=== PATIENT | male | born 1965 | race Caucasian/White ===

== ENCOUNTER 2019-10-11 14:01 | Inpatient (IN) ==
--- NOTE | 2019-10-11 14:57 | XRay Report ---
XR chest 1V portable CLINICAL HISTORY: Sepsis COMPARISON STUDY: No previous studies for comparison. FINDINGS: Lung volumes are diminished. Left basilar opacity favors atelectasis. There is no evidence for pulmonary edema. There is slight prominence of the contour of the ascending aorta. Cardiac size i s normal. No pneumothorax or pleural effusion is noted. IMPRESSION: 1. No acute findings. 2. Low lung volumes with suspected left basilar atelectasis. Electronically signed by: Ignacio Foster M.D. 10/11/2019 2:55 PM
[2019-10-11 15:52] LABS: Basophils # (auto) 0.04 K/uL (0-0.2); Basophils % (auto) 0.6 %; Eosinophils # (auto) 0.11 K/uL (0-0.5); Eosinophils % (auto) 1.5 %; Hematocrit (blood only) 29.8 % (42-52); Hemoglobin 10.9 g/dL (14.0-18.0); Immature Granulocytes # (auto) 0.02 K/uL (0.00-0.02); Immature Granulocytes % (auto) 0.3 %; Lymphocytes # (auto) 0.89 K/uL (1.2-3.4); Lymphocytes % (auto) 12.3 %; Mean Corpuscular Hemoglobin 36.6 pg (25-34); Mean Corpuscular Hgb Conc 36.6 g/dL (32-36); Mean Platelet Volume 8.5 fL (7.4-10.4); Monocytes # (auto) 1.24 K/uL (0.11-0.59); Monocytes % (auto) 17.2 %; Neutrophils # (auto) 4.93 K/uL (1.4-6.5); Neutrophils % (auto) 68.1 %; Platelet Count 175 K/uL (130-400); RDW Coefficient of Variation 13.7 % (11.5-14.5); RDW Standard Deviation 49.7 fL (36.4-46.3); Red Blood Count 2.98 M/uL (4.7-6.1); White Blood Count 7.23 K/uL (4.8-10.8)
[2019-10-11 16:03] LABS: iSTAT Creatinine 1.1 mg/dl (0.6-1.3); iSTAT Hemoglobin 11.2 g/dl (14.0-18.0); iSTAT Ionized Calcium 1.14 mmol/l (1.12-1.32); iSTAT Potassium 3.8 mEq/L (3.3-5.0)
[2019-10-11 16:06] LABS: INR 1.5 (0.9-1.1); Partial Thromboplastin Ratio 1.2; Partial Thromboplastin Time 33.6 Seconds (21.0-31.0); Prothrombin Time 14.8 Seconds (9.0-12.0)
[2019-10-11 16:14] LABS: Albumin Level 3.3 gm/dl (3.4-5.0); Calcium 9.4 mg/dl (8.5-10.1); Creatinine Clr Calc Pharmacy 80.9 ml/min; Est GFR (African American) 81.7; Est GFR (Non-African American) 70.5; Potassium 3.8 mmol/L (3.5-5.1)
[2019-10-11] MEDS ORDERED: LACTULOSE SYRUP 30 GM/45 ML UDP PO STA (16:18)
[2019-10-11 16:22] LABS: Albumin Globulin Ratio 0.6 (0.9-2); Bilirubin,Total 5.6 mg/dl (0.2-1); Globulin 5.6 gm/dl (2.5-4.0); Total Protein 8.9 gm/dl (6.4-8.2)
--- NOTE | 2019-10-11 17:00 | CT Scan Report ---
CT OF THE HEAD WITHOUT CONTRAST CLINICAL HISTORY: Altered mental status. Evaluate for bleed. COMPARISON STUDY: No previous studies for comparison. TECHNIQUE: Helical axial images of the head were obtained without IV contrast. Automated exposure con trol was utilized for the study. A dose lowering technique was utilized adhering to the principles o f ALARA. FINDINGS: No acute intracranial hemorrhage, midline shift or mass effect is present. The basilar cist erns are patent. No extra-axial collections are present. There are no findings to suggest acute dural sinus thrombosis or acute territorial infarct. No significant calvarial abnormalities are present. V isualized portions of the sinuses and mastoid air cells are clear. A 5 mm cyst at the foramen of Monr o is noted. There is no hydrocephalus. IMPRESSION: 1. No acute intracranial findings. 2. 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 No hydrocephalus. Electronically signed by: Ignacio Foster M.D. 10/11/2019 4:59 PMr
[2019-10-11] MEDS ORDERED: LACTULOSE 200 GM, WATER, STERILE IRRIG 700 ML, BARCODE IDENTIFIER 1 EA PR STA (17:01)
--- NOTE | 2019-10-11 17:16 | CT Scan Report ---
CT OF THE ABDOMEN AND PELVIS WITHOUT CONTRAST CLINICAL HISTORY: Right-sided abdominal pain. Evaluate for cholecystitis. COMPARISON STUDY: Abdominal ultrasound July 23, 2019. TECHNIQUE: Axial images of the abdomen and pelvis were obtained without IV contrast. Images were revi ewed in the axial, sagittal, and coronal planes. Automated exposure control was utilized for the king dy. A dose lowering technique was utilized adhering to the principles of ALARA. FINDINGS: Imaged portions of the lower chest are unremarkable. Bilateral gynecomastia is noted. Evalu ation of the abdomen and pelvis is suboptimal on this unenhanced exam. No pneumatosis, free air or po rtal venous gas is present. The liver is cirrhotic. There are gallstones within the gallbladder. The gallbladder is not distended. Large right abdominal collaterals are noted. The spleen is mildly enlar ged. Moderate abdominal and pelvic ascites is noted. Proximal to mid small bowel is moderately dilate d. Distal small bowel is decompressed. These findings favor a small bowel obstruction however evaluat ion for transition point is difficult on this unenhanced exam. An ascites containing umbilical hernia is noted. Small bowel loops may protrude into this hernia sac. Its unclear if this represents the tr ansition point. No inguinal hernias are present. Bladder is mildly distended. There are no suspicious osseous lesions. No hepatic lesions are identified although sensitivity is diminished on this unenha nced examination. The adrenal glands, kidneys and pancreas are normal. No peripancreatic infiltration . IMPRESSION: 1. Cirrhosis with manifestations of portal hypertension including large right abdominal collaterals, moderate ascites and mild splenomegaly. 2. Moderate dilatation of the proximal to mid small bowel with decompressed distal small bowel. Evalu ation for transition point difficult on this unenhanced exam. Ascites containing umbilical hernia whi ch could contain a small bowel loop. It's unclear if this represents the transition point. A CT of th e abdomen and pelvis with IV contrast is recommended if possible. An ileus could appear similar altho ugh small bowel obstruction is favored. 3. Cholelithiasis. Electronically signed by: Ignacio Foster M.D. 10/11/2019 5:14 PM
[2019-10-11] MEDS ORDERED: IOVERSOL 100ml IV PRN (18:27)
--- NOTE | 2019-10-11 18:52 | CT Scan Report ---
CT OF THE ABDOMEN AND PELVIS WITH CONTRAST CLINICAL HISTORY: Evaluate for SBO/incarcerated hernia. COMPARISON STUDY: CT of the abdomen and pelvis October 11, 2019 at 4:20 PM. TECHNIQUE: Following IV administration of 93 mL of Optiray-320, axial images of the abdomen and pelvi s were obtained from the lung bases to the proximal femurs. Images were reviewed in the axial, sagitt al, and coronal planes. IV contrast was administered without complication. Automated exposure contro l was utilized for the study. A dose lowering technique was utilized adhering to the principles of A ALIA. CT DOSE: 776.60 mGy.cm FINDINGS: Lung bases are unremarkable. Bilateral gynecomastia is noted. The liver is cirrhotic. Note is made of an indeterminate 6 mm segment 2 hepatic lesion. The main and left portal veins are patent. The right portal vein is suboptimally assessed on this exam due to artifact but is likely patent. Mi ld splenomegaly is noted. Moderate ascites is noted. Large right abdominal collaterals are noted. The adrenal glands, kidneys and pancreas are normal. There is no pneumatosis, free air or portal venous gas. The mid small bowel is moderately dilated and fluid-filled. Distal small bowel is decompressed. Transition point is likely at the umbilical hernia which also contains ascites as well as a knuckle o f small bowel. This is shown on axial image [id number]. Evaluation is difficult given adjacent ascites. Bladder is mildly distended. Appendix is normal. There are no suspicious osseous lesions. Gallstones are noted. IMPRESSION: 1. Small bowel obstruction due to an umbilical hernia which contains a knuckle of small bowel and asc ites. 2. Cirrhosis with manifestations of portal hypertension including moderate ascites, large right abdom inal collaterals and mild splenomegaly. Indeterminate 6 mm segment 2 hepatic lesion. 3. Cholelithiasis. Electronically signed by: Ignacio Foster M.D. 10/11/2019 6:50 PM
[2019-10-11] MEDS ORDERED: PHYTONADIONE 10 MG in SODIUM CHLORIDE 0.9% 50 ML IV ONE (19:09)
--- NOTE | 2019-10-11 19:11 | Surgery Consultation ---
Date of Consultation October 11, 2019 Assessment & Plan (1) Small bowel obstruction: Patient without evidence of bowel ischemia. He is clearly dehydrated. Has not been having nausea or vomiting at home. With his liver failure, cirrhosis, coagulopathy, ascites, he is a very complex patient with a very high surgical morbidity/mortality. I recommend he be transferred to a tertiary center where he can have all of his issues addressed by specialists. If for some reason he cannot be transferred I recommend correcting his coagulopathy with vitamin K. I also recommend nasogastric tube to low intermittent suction. IV fluids. Correcting his hepatic encephalopathy/ammonia level. Surgical intervention only as a last resort. I will follow along should he have to be admitted here. (2) Dehydration: History of Present Illness History of Present Illness 54-year-old male with a history of alcoholic cirrhosis presents with his due to altered mental status. He has not really eaten anything since Sunday. He generally has chronic underlying right sided abdominal pain per his . He was seen by the [facility] in [place] regarding his cirrhosis/liver transplant work-up. CT scan shows ascites as well as a small bowel obstruction suspected to be at an umbilical hernia. The patient himself has not been vomiting at all at home. The patient's tell me he has had 3 or 4 episodes similar to this since June with regards to him not wanting to eat. This is the first time he has had altered mental status to this severity. Allergies Allergy/AdvReac Type Severity Reaction Status Date / Time No Known Allergies Allergy Verified 10/11/19 16:36 Home Medications Home Medications Medication Instructions Recorded Confirmed Type ergocalciferol (vitamin D2) 50,000 unit PO TH 10/11/19 10/11/19 History furosemide 20 mg PO BID 10/11/19 10/11/19 History potassium chloride 20 meq PO DAILY 10/11/19 10/11/19 History spironolactone 100 mg PO DAILY 10/11/19 10/11/19 History Patient History Medical History Enlarged liver Gallstones Liver cirrhosis, alcoholic Splenomegaly Thickening of wall of gallbladder Umbilical hernia Surgical History No pertinent past surgical history Family History Mother Cancer Melanoma Father Hypertension Heart disease Social History Preferred Language: Micronesian Visual Impairment: No Limitations Hearing Ability: Normal marital status: Current Living Situation: Spouse current occupational status: employed 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 Moves spontaneously. Does not follow commands. HEENT: Dry mucous membranes. Heart: Sinus tachy Abdomen: Soft. Nondistended. Positive umbilical hernia with fluid within it.( unchanged per ). Nontender. ext:no edema Results & Data Vital Signs (Past 12 Hours) Vital Signs Temp Pulse Resp BP Pulse Ox 10/11/19 17:30 118 H 18 156/86 H 10/11/19 17:15 122 H 21 149/88 H 10/11/19 17:00 120 H 20 148/82 H 10/11/19 16:45 114 H 15 132/77 10/11/19 16:15 117 H 17 139/89 97 10/11/19 15:58 36.5 C 128 H 20 100 10/11/19 15:56 117 H 17 136/79 97 10/11/19 14:05 36.7 C 128 H 20 156/97 H 100 PG Care Time/CCT Total # of Minutes Spent Total Time Spent with Patient: Total time spent is greater than 50% in coordination of care (as documented) at patient's floor/unit and/or counseling patient:
[2019-10-11] MEDS ORDERED: SODIUM CHLORIDE 0.9% 1000ML 1,000 ML IV SCH (19:30)
[2019-10-11] MEDS ORDERED: LORazepam 0.5 MG/1 ML VIAL IV STA (20:58)
[2019-10-11] MEDS ORDERED: LORazepam 2 MG/4 ML VIAL ONE (21:00)
--- NOTE | 2019-10-11 23:10 | Emergency Department Note ---
Entered by Brie Ojeda acting as a scribe for Arley Treadwell MD History of Present Illness General Chief complaint: GI Assessment Stated complaint: DEHYDRATED - HASNT ATE SINCE SUN NIGHT Time Seen by Provider: 10/11/19 14:31 Source: family and old records reviewed Limitations: altered mental status History of Present Illness Onset (ago): day(s) 3 Location: abdomen (right sided) Pain Consistency: + constant Maximum Pain Intensity: 5 Exacerbated By: + eating Associated symptoms: + denies other symptoms (vomiting, diarrhea, hematochezia ), + confusion (began today, non-verbal ) and + other (nausea, non-verbal (began today), jaundice appearance, frequent nosebleeds) The patient is a 54 year old male with a history of alcohol abuse (last drink was June 2019), alcohol induced cirrhosis of the liver who presents to the Emergency Room with complaints of abdominal pain. The patient began to experience right sided abdominal pain after eating lemon chicken soup at a restaurant 3 days ago. Family reports that 30 minutes after PO the patient began to experience nausea but did not vomit and did not have diarrhea. The patient's family states that this is his third recent episode of abdominal pain after food intake. The family reports that they did not experience these symptoms after eating at this restaurant with him. Since this time, the patient has not had any PO intake besides fluids. He has had only 2 small bowel movements since then and family states that his skin appears more jaundiced. Additionally, family reports that the patient was conversational up until today and that he became confused. They are unsure if he fell or hit his head recently. They also state that he has been experiencing recent nosebleeds but they think it may be due to the dryness in their home since they have a fireplace going. Family denies that the patient had hematochezia and are unsure of melena. History is limited as the patient is nonverbal. HPI is limited due to the patient's altered mental status. Home Medications Home Medications Medication Instructions Recorded Confirmed Type ergocalciferol (vitamin D2) 50,000 unit PO TH 10/11/19 10/11/19 History furosemide 20 mg PO BID 10/11/19 10/11/19 History potassium chloride 20 meq PO DAILY 10/11/19 10/11/19 History spironolactone 100 mg PO DAILY 10/11/19 10/11/19 History Allergies Allergy/AdvReac Type Severity Reaction Status Date / Time No Known Allergies Allergy Verified 10/11/19 16:36 Past Med/Surg History Medical History Enlarged liver Gallstones Liver cirrhosis, alcoholic Splenomegaly Thickening of wall of gallbladder Umbilical hernia Surgical History No pertinent past surgical history Family History Mother Cancer Melanoma Father Hypertension Heart disease Social History Preferred Language: Armenian Visual Impairment: No Limitations Hearing Ability: Normal marital status: Current Living Situation: Spouse current occupational status: employed 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 ROS is limited due to the patient's altered mental status. Physical Exam Vital Signs Vital Signs - 24 hr 10/11/19 14:05 10/11/19 15:56 10/11/19 15:58 Temperature 36.7 C 36.5 C Temperature Source Oral Rectal Pulse Rate 128 H 117 H 128 H Pulse Rate from SpO2 Sensor 116 H Pulse Rhythm Regular Respiratory Rate 20 17 20 Respiratory Effort / Characteristics Non-Labored Spontaneous Respiratory Depth Normal Blood Pressure 156/97 H 136/79 Blood Pressure Mean 116 88 Blood Pressure Position Sitting Pulse Oximetry 100 97 100 Oxygen Delivery Method Room Air Room Air Room Air Sepsis Recent Fever Within 48 Hours No Sepsis New/Unexplained Change in Mental Status No Sepsis Action Taken by Nursing No Action Required 10/11/19 16:15 10/11/19 16:45 10/11/19 17:00 Temperature Temperature Source Pulse Rate 117 H 114 H 120 H Pulse Rate from SpO2 Sensor 117 H Pulse Rhythm Respiratory Rate 17 15 20 Respiratory Effort / Characteristics Respiratory Depth Blood Pressure 139/89 132/77 148/82 H Blood Pressure Mean 99 95 93 Blood Pressure Position Pulse Oximetry 97 Oxygen Delivery Method Room Air Sepsis Recent Fever Within 48 Hours Sepsis New/Unexplained Change in Mental Status Sepsis Action Taken by Nursing 10/11/19 17:15 10/11/19 17:30 10/11/19 17:45 Temperature Temperature Source Pulse Rate 122 H 118 H 124 H Pulse Rate from SpO2 Sensor Pulse Rhythm Respiratory Rate 21 18 19 Respiratory Effort / Characteristics Respiratory Depth Blood Pressure 149/88 H 156/86 H 146/88 H Blood Pressure Mean 106 95 103 Blood Pressure Position Pulse Oximetry Oxygen Delivery Method Sepsis Recent Fever Within 48 Hours Sepsis New/Unexplained Change in Mental Status Sepsis Action Taken by Nursing 10/11/19 18:00 10/11/19 19:04 10/11/19 19:05 Temperature Temperature Source Pulse Rate 118 H 118 H 108 H Pulse Rate from SpO2 Sensor 118 H 108 H Pulse Rhythm Respiratory Rate 17 19 15 Respiratory Effort / Characteristics Respiratory Depth Blood Pressure 151/85 H 157/103 H Blood Pressure Mean 91 108 Blood Pressure Position Pulse Oximetry 96 96 Oxygen Delivery Method Room Air Sepsis Recent Fever Within 48 Hours Sepsis New/Unexplained Change in Mental Status Sepsis Action Taken by Nursing 10/11/19 19:15 10/11/19 19:30 10/11/19 19:31 Temperature Temperature Source Pulse Rate 112 H 106 H 109 H Pulse Rate from SpO2 Sensor 112 H 105 H 109 H Pulse Rhythm Respiratory Rate 18 15 15 Respiratory Effort / Characteristics Respiratory Depth Blood Pressure 120/92 144/86 H Blood Pressure Mean 97 96 Blood Pressure Position Pulse Oximetry 96 97 97 Oxygen Delivery Method Sepsis Recent Fever Within 48 Hours Sepsis New/Unexplained Change in Mental Status Sepsis Action Taken by Nursing 10/11/19 19:45 10/11/19 19:46 10/11/19 20:00 Temperature Temperature Source Pulse Rate 117 H 119 H 114 H Pulse Rate from SpO2 Sensor 119 H 119 H 115 H Pulse Rhythm Respiratory Rate 27 H 16 17 Respiratory Effort / Characteristics Respiratory Depth Blood Pressure 197/164 H Blood Pressure Mean 176 Blood Pressure Position Pulse Oximetry 97 98 95 Oxygen Delivery Method Sepsis Recent Fever Within 48 Hours Sepsis New/Unexplained Change in Mental Status Sepsis Action Taken by Nursing 10/11/19 20:01 10/11/19 20:15 10/11/19 20:16 Temperature Temperature Source Pulse Rate 112 H 115 H 106 H Pulse Rate from SpO2 Sensor 112 H 114 H 106 H Pulse Rhythm Respiratory Rate 18 19 15 Respiratory Effort / Characteristics Respiratory Depth Blood Pressure 130/76 145/84 H Blood Pressure Mean 87 96 Blood Pressure Position Pulse Oximetry 95 96 96 Oxygen Delivery Method Sepsis Recent Fever Within 48 Hours Sepsis New/Unexplained Change in Mental Status Sepsis Action Taken by Nursing 10/11/19 20:30 10/11/19 20:31 10/11/19 20:45 Temperature Temperature Source Pulse Rate 95 H 95 H 108 H Pulse Rate from SpO2 Sensor 95 H 94 H 107 H Pulse Rhythm Respiratory Rate 14 13 15 Respiratory Effort / Characteristics Respiratory Depth Blood Pressure 121/75 113/72 Blood Pressure Mean 85 88 Blood Pressure Position Pulse Oximetry 96 96 96 Oxygen Delivery Method Sepsis Recent Fever Within 48 Hours Sepsis New/Unexplained Change in Mental Status Sepsis Action Taken by Nursing 10/11/19 20:46 10/11/19 21:00 10/11/19 21:16 Temperature Temperature Source Pulse Rate 90 119 H 108 H Pulse Rate from SpO2 Sensor 90 121 H 109 H Pulse Rhythm Respiratory Rate 14 24 19 Respiratory Effort / Characteristics Respiratory Depth Blood Pressure 144/88 H Blood Pressure Mean 118 Blood Pressure Position Pulse Oximetry 96 94 99 Oxygen Delivery Method Sepsis Recent Fever Within 48 Hours Sepsis New/Unexplained Change in Mental Status Sepsis Action Taken by Nursing 10/11/19 21:30 10/11/19 21:31 10/11/19 21:45 Temperature Temperature Source Pulse Rate 101 H 114 H 96 H Pulse Rate from SpO2 Sensor 101 H 113 H 97 H Pulse Rhythm Respiratory Rate 32 H 26 H 22 Respiratory Effort / Characteristics Respiratory Depth Blood Pressure 138/92 124/84 Blood Pressure Mean 105 89 Blood Pressure Position Pulse Oximetry 96 97 96 Oxygen Delivery Method Sepsis Recent Fever Within 48 Hours Sepsis New/Unexplained Change in Mental Status Sepsis Action Taken by Nursing 10/11/19 21:46 10/11/19 22:00 10/11/19 22:01 Temperature Temperature Source Pulse Rate 95 H 112 H 113 H Pulse Rate from SpO2 Sensor 94 H 113 H 114 H Pulse Rhythm Respiratory Rate 19 18 13 Respiratory Effort / Characteristics Respiratory Depth Blood Pressure 155/99 H Blood Pressure Mean 122 Blood Pressure Position Pulse Oximetry 95 95 98 Oxygen Delivery Method Sepsis Recent Fever Within 48 Hours Sepsis New/Unexplained Change in Mental Status Sepsis Action Taken by Nursing 10/11/19 22:15 10/11/19 22:16 10/11/19 22:30 Temperature Temperature Source Pulse Rate 119 H 114 H 105 H Pulse Rate from SpO2 Sensor 119 H 115 H 106 H Pulse Rhythm Respiratory Rate 19 25 H 34 H Respiratory Effort / Characteristics Respiratory Depth Blood Pressure 162/104 H 163/97 H Blood Pressure Mean 122 118 Blood Pressure Position Pulse Oximetry 96 95 93 Oxygen Delivery Method Sepsis Recent Fever Within 48 Hours Sepsis New/Unexplained Change in Mental Status Sepsis Action Taken by Nursing 10/11/19 22:31 Temperature Temperature Source Pulse Rate 120 H Pulse Rate from SpO2 Sensor 120 H Pulse Rhythm Respiratory Rate 18 Respiratory Effort / Characteristics Respiratory Depth Blood Pressure Blood Pressure Mean Blood Pressure Position Pulse Oximetry 95 Oxygen Delivery Method Sepsis Recent Fever Within 48 Hours Sepsis New/Unexplained Change in Mental Status Sepsis Action Taken by Nursing Constitutional: Vital signs reviewed. Eyes: Pupils are equal round reactive to light. Bilateral scleral icterus. ENT: Pharynx is clear without erythema or exudate. Mucous membranes are moist. Neck supple without meningeal signs. Respiratory: Clear to auscultation bilaterally. Breath sounds are equal bilaterally. Cardiovascular: Tachycardic rate at 128 bpm and normal rhythm. No rubs or gallops. GI: Soft, nondistended. RUQ tenderness. No guarding. Bowel sounds are present. Golf ball sized umbilical hernia that is soft and non-tender. Musculoskeletal: No peripheral edema. No lower extremity tenderness. Integumentary: No cyanosis. Jaundiced. Neurological: The patient is awake and alert. He moves all extremities. No facial droop. He does not follow commands and is non-verbal. Psychiatric: unable to assess. Course Course 1435: Past medical records reviewed. The patient was evaluated in room C10. A complete history and physical exam was performed. 1529: I reassessed the patient. He is getting labs done now. I discussed his x- ray and EKG results with him and his family. 1617: The patient's ammonia level is 112. 1640: I spoke to the patient's and the patient is still confused. I discussed test results with her from blood tests and I am currently waiting for the CT results. 1724: I spoke to Dr. aMdison, [facility] General Surgery who will evaluate the patient. 1732: Dr. Foster, [facility] Radiology recommends IV contrast in order to see if the small bowel was present in the hernia. I spoke to his who is agreeable with this. Additionally, the patient is picking his nose so much that he is now bleeding. The is agreeable to mittens of soft restraints. I also tried to reduce the hernia but it is not reducing. 1835: Dr. Madison evaluated the patient and we both talked to the family. Dr. Madison believes it is unlikely that the patient has a small bowel obstruction being caused by the hernia and he will look at the second CT to verify this. I paged GI to get their opinion as well. 1845: I spoke to ELLE Brown who states that the patient can be managed here for lactulose and recommends a diagnostic tap for SBP. 1909: I spoke with the surgeon who said there is a small bowel obstruction but they do not think that he needs immediate surgery and does not recommend taking him to the OR tonight but does recommend transferring the patient to a tertiary care center. 1914: GI called back after looking at the CT scan and she said she agrees that the patient should be transferred to a tertiary care center. She also does not recommend an NGT but recommends Vitamin K. 1919: I spoke to the and she is agreeable to transfer. 1925: I spoke to Dr. Elizalde, Surgery at [facility] who accepts the patient and wants him to go to their ER so she wants me to get him an ED doctor. 1929: I let the know about transfer to [facility]. She states that she investigated a private charter, but I explained to her that he would need a medical support escort. 1956: I spoke to Dr. Hi, [facility] Director at [place] and he said that we are unable to fly him and it would not be feasible to arrange for a al dical team for private charter. I explained this to the family. 2026: Our medics will transport the patient within a half hour. I informed the patient's sister in law of this. 2040: Transport got delayed due to icy road conditions. Will reassess in 2 hours. 2051: I let the patient and his family know about the transport situation. The patient's heart rate is now in the 90s and he is sleeping. The charge nurse will talk to Reece Vasques to see what the patient's options are. 2057: Nurses report that the patient is rolling around in his bed and acting restless and repeating the words "okay okay okay". I will give him [facility]. 2119: I spoke to EMS. They said that for the rest of the night they will not be able to transport him to [place] due to icy road conditions. 2122: I spoke to the family and they are willing to transfer him to [facility]. 2208: Still waiting for [facility] to call me back. Sister in law is updated. The patient is now asleep. 2234: Her she called back stating that the RN that they would call me back. I went to update the patient's . Patient's stated that his hernia has deflated. The patient is actively having flatus. The patient's therefore stated that they prefer not to go to [place] and just go to [facility] as planned in the morning when the weather improved. I did speak to GI again who stated that we should continue lactulose enemas and consider prophylactic antibiotics. 2299: I did speak to Dr. Haywood for hospitalization. He requested I speak to Dr. Madison before admit the patient to ask if he would be able to take the patient to the OR should he have an emergency in the middle night. Dr. Madison stated that he would be able to do so. Administered Medications Sodium Chloride (Nss 1000ml) 1,000 mls @ 125 mls/hr IV .Q8H [facility] Stop: 11/10/19 19:29 Last Admin: 10/11/19 19:43 Dose: 125 mls/hr Documented by: [id number] Ioversol (Optiray 320 100ml) 93 ml IV ONCE PRN PRN Reason: Interaction Checking Stop: 10/15/19 18:26 Last Admin: 10/11/19 18:27 Dose: 93 ml Documented by: [id number] Discontinued Medications Lactulose 200 gm/ Sterile Water 700 ml/ BARCODE IDENTIFIER 1 ea 0 gm KS NOW STA Stop: 10/11/19 17:02 Last Admin: 10/11/19 19:43 Dose: Not Given Documented by: [id number] Phytonadione 10 mg/ Sodium (Chloride) 51 mls @ 102 mls/hr IV ONE ONE Stop: 10/11/19 19:38 Last Infusion: 10/11/19 21:23 Dose: 0 mls/hr Documented by: [id number] Admin: 10/11/19 19:43 Dose: 102 mls/hr Documented by: [id number] Lorazepam (Ativan) 0.5 mg in 1 mls @ 1 mls/min IV NOW STA Stop: 10/11/19 20:59 Last Admin: 10/11/19 21:06 Dose: Not Given Documented by: [id number] Lactulose (Chronulac) 30 gm PO NOW STA Stop: 10/11/19 16:19 Last Admin: 10/11/19 19:43 Dose: Not Given Documented by: [id number] Lorazepam (Ativan) Confirm Administered Dose 2 mg .ROUTE .STK-MED ONE Stop: 10/11/19 21:01 Last Admin: 10/11/19 21:05 Dose: 0.5 mg Documented by: [id number] Critical Care Time Critical Care Time: Yes Total Critical Care Time: 80 I have personally spent approximately 80 minutes of critical care time in the direct management of this patient. This includes bedside care, interpretation of diagnostic studies, and testing, discussion with consultants, patient, and family members, and other required patient management activities. This 80 minutes is in excess of all separately billable procedures. Medical Decision Making Differential Diagnosis Differential diagnosis includes but is not limited to hepatic encephalopathy, ICH, biliary obstruction, cholecystitis, cholangitis, incarcerated hernia, sepsis, dehydration. Medical Records Attestation: I reviewed the patient's medical records. The patient got an US in June 2019 which showed cirrhosis of the liver with splenomegaly and moderate ascites. Additionally he has a history of gallstones with gallbladder wall thickening. Home Medications Current Medication List: was personally reviewed by me Laboratory Data Attestation: I reviewed the patient's lab results. Result diagrams: 10/11/19 15:40 10/11/19 15:40 Lab Results 10/11/19 10/11/19 10/11/19 Range/Units 15:40 15:40 15:40 WBC 7.23 (4.8-10.8) K/uL RBC 2.98 L (4.7-6.1) M/uL Hgb 10.9 L (14.0-18.0) g/dL POC Hgb (14.0-18.0) g/dl Hct 29.8 L (42-52) % POC Hct (42-52) % MCV 100.0 (80-100) fL MCH 36.6 H (25-34) pg MCHC 36.6 H (32-36) g/dL RDW Std Deviation 49.7 H (36.4-46.3) fL RDW Coeff of Victor Manuel 13.7 (11.5-14.5) % Plt Count 175 (130-400) K/uL MPV 8.5 (7.4-10.4) fL Immature Gran % (Auto) 0.3 % Neut % (Auto) 68.1 % Lymph % (Auto) 12.3 % [place] % (Auto) 17.2 % Eos % (Auto) 1.5 % Baso % (Auto) 0.6 % Immature Gran # (Auto) 0.02 (0.00-0.02) K/uL Neut # (Auto) 4.93 (1.4-6.5) K/uL Lymph # (Auto) 0.89 L (1.2-3.4) K/uL [place] # (Auto) 1.24 H (0.11-0.59) K/uL Eos # (Auto) 0.11 (0-0.5) K/uL Baso # (Auto) 0.04 (0-0.2) K/uL PT 14.8 H (9.0-12.0) Seconds INR 1.5 H (0.9-1.1) APTT 33.6 H (21.0-31.0) Seconds PTT Ratio 1.2 POC Sodium (135-144) mEq/L Sodium (136-145) mmol/L POC Potassium (3.3-5.0) mEq/L Potassium (3.5-5.1) mmol/L POC Chloride (101-112) mEq/L Chloride (98-107) mmol/L Carbon Dioxide (21-32) mmol/L POC Total CO2 (24-31) mEq/l Anion Gap (3-11) POC Anion Gap (16-25) mmol/L POC BUN (7-18) mg/dl BUN (7-18) mg/dl Creatinine (0.6-1.4) mg/dl POC Creatinine (0.6-1.3) mg/dl Est Cr Clr Drug Dosing ml/min Est GFR ( Amer) Est GFR (Non-Af Amer) BUN/Creatinine Ratio (10-20) Glucose (70-99) mg/dl POC Glucose (other) (70-99) mg/dl Lactate (0.4-2.0) mmol/L Calcium (8.5-10.1) mg/dl POC Ioniz Calcium Manpreet (1.12-1.32) mmol/l Total Bilirubin (0.2-1) mg/dl AST (15-37) U/L ALT (12-78) U/L Alkaline Phosphatase (45-117) U/L Ammonia 112.0 H (11-32) umol/L Total Protein (6.4-8.2) gm/dl Albumin (3.4-5.0) gm/dl Globulin (2.5-4.0) gm/dl Albumin/Globulin Ratio (0.9-2) Lipase (73-393) U/L 10/11/19 10/11/19 10/11/19 Range/Units 15:40 15:40 15:51 WBC (4.8-10.8) K/uL RBC (4.7-6.1) M/uL Hgb (14.0-18.0) g/dL POC Hgb 11.2 L (14.0-18.0) g/dl Hct (42-52) % POC Hct 33 L (42-52) % MCV (80-100) fL MCH (25-34) pg MCHC (32-36) g/dL RDW Std Deviation (36.4-46.3) fL RDW Coeff of Victor Manuel (11.5-14.5) % Plt Count (130-400) K/uL MPV (7.4-10.4) fL Immature Gran % (Auto) % Neut % (Auto) % Lymph % (Auto) % [place] % (Auto) % Eos % (Auto) % Baso % (Auto) % Immature Gran # (Auto) (0.00-0.02) K/uL Neut # (Auto) (1.4-6.5) K/uL Lymph # (Auto) (1.2-3.4) K/uL [place] # (Auto) (0.11-0.59) K/uL Eos # (Auto) (0-0.5) K/uL Baso # (Auto) (0-0.2) K/uL PT (9.0-12.0) Seconds INR (0.9-1.1) APTT (21.0-31.0) Seconds PTT Ratio POC Sodium 137 (135-144) mEq/L Sodium 135 L (136-145) mmol/L POC Potassium 3.8 (3.3-5.0) mEq/L Potassium 3.8 (3.5-5.1) mmol/L POC Chloride 103 (101-112) mEq/L Chloride 103 (98-107) mmol/L Carbon Dioxide 25 (21-32) mmol/L POC Total CO2 22 L (24-31) mEq/l Anion Gap 7.0 (3-11) POC Anion Gap 16.0 (16-25) mmol/L POC BUN 21 H (7-18) mg/dl BUN 22 H (7-18) mg/dl Creatinine 1.16 (0.6-1.4) mg/dl POC Creatinine 1.1 (0.6-1.3) mg/dl Est Cr Clr Drug Dosing 80.9 ml/min Est GFR ( Amer) 81.7 Est GFR (Non-Af Amer) 70.5 BUN/Creatinine Ratio 19.0 (10-20) Glucose 121 H (70-99) mg/dl POC Glucose (other) 123 H (70-99) mg/dl Lactate 2.8 H* (0.4-2.0) mmol/L Calcium 9.4 (8.5-10.1) mg/dl POC Ioniz Calcium Manpreet 1.14 (1.12-1.32) mmol/l Total Bilirubin 5.6 H (0.2-1) mg/dl AST 44 H (15-37) U/L ALT 24 (12-78) U/L Alkaline Phosphatase 99 (45-117) U/L Ammonia (11-32) umol/L Total Protein 8.9 H (6.4-8.2) gm/dl Albumin 3.3 L (3.4-5.0) gm/dl Globulin 5.6 H (2.5-4.0) gm/dl Albumin/Globulin Ratio 0.6 L (0.9-2) Lipase 276 (73-393) U/L 10/11/19 Range/Units 18:01 WBC (4.8-10.8) K/uL RBC (4.7-6.1) M/uL Hgb (14.0-18.0) g/dL POC Hgb (14.0-18.0) g/dl Hct (42-52) % POC Hct (42-52) % MCV (80-100) fL MCH (25-34) pg MCHC (32-36) g/dL RDW Std Deviation (36.4-46.3) fL RDW Coeff of Victor Manuel (11.5-14.5) % Plt Count (130-400) K/uL MPV (7.4-10.4) fL Immature Gran % (Auto) % Neut % (Auto) % Lymph % (Auto) % [place] % (Auto) % Eos % (Auto) % Baso % (Auto) % Immature Gran # (Auto) (0.00-0.02) K/uL Neut # (Auto) (1.4-6.5) K/uL Lymph # (Auto) (1.2-3.4) K/uL [place] # (Auto) (0.11-0.59) K/uL Eos # (Auto) (0-0.5) K/uL Baso # (Auto) (0-0.2) K/uL PT (9.0-12.0) Seconds INR (0.9-1.1) APTT (21.0-31.0) Seconds PTT Ratio POC Sodium (135-144) mEq/L Sodium (136-145) mmol/L POC Potassium (3.3-5.0) mEq/L Potassium (3.5-5.1) mmol/L POC Chloride (101-112) mEq/L Chloride (98-107) mmol/L Carbon Dioxide (21-32) mmol/L POC Total CO2 (24-31) mEq/l Anion Gap (3-11) POC Anion Gap (16-25) mmol/L POC BUN (7-18) mg/dl BUN (7-18) mg/dl Creatinine (0.6-1.4) mg/dl POC Creatinine (0.6-1.3) mg/dl Est Cr Clr Drug Dosing ml/min Est GFR ( Amer) Est GFR (Non-Af Amer) BUN/Creatinine Ratio (10-20) Glucose (70-99) mg/dl POC Glucose (other) (70-99) mg/dl Lactate 2.8 H* (0.4-2.0) mmol/L Calcium (8.5-10.1) mg/dl POC Ioniz Calcium Manpreet (1.12-1.32) mmol/l Total Bilirubin (0.2-1) mg/dl AST (15-37) U/L ALT (12-78) U/L Alkaline Phosphatase (45-117) U/L Ammonia (11-32) umol/L Total Protein (6.4-8.2) gm/dl Albumin (3.4-5.0) gm/dl Globulin (2.5-4.0) gm/dl Albumin/Globulin Ratio (0.9-2) Lipase (73-393) U/L Imaging Data Radiologist's Impression: Radiology results as stated below per my review and the radiologist's interpretation: CT OF THE ABDOMEN AND PELVIS WITHOUT CONTRAST CLINICAL HISTORY: Right-sided abdominal pain. Evaluate for cholecystitis. COMPARISON STUDY: Abdominal ultrasound July 23, 2019. TECHNIQUE: Axial images of the abdomen and pelvis were obtained without IV contrast. Images were reviewed in the axial, sagittal, and coronal planes. Automated exposure control was utilized for the study. A dose lowering techni que was utilized adhering to the principles of ALARA. FINDINGS: Imaged portions of the lower chest are unremarkable. Bilateral gynecomastia is noted. Evaluation of the abdomen and pelvis is suboptimal on this unenhanced exam. No pneumatosis, free air or portal venous gas is present. The liver is cirrhotic. There are gallstones within the gallbladder. The gallbladder is not distended. Large right abdominal collaterals are noted. The spleen is mildly enlarged. Moderate abdominal and pelvic ascites is noted. Proximal to mid small bowel is moderately dilated. Distal small bowel is decompressed. These findings favor a small bowel obstruction however evaluation for transition point is difficult on this unenhanced exam. An ascites containing umbilical hernia is noted. Small bowel loops may protrude into this hernia sac. Its unclear if this represents the transition point. No inguinal hernias are present. Bladder is mildly distended. There are no suspicious osseous lesions. No hepatic lesions are identified although sensitivity is diminished on this unenhanced examination. The adrenal glands, kidneys and pancreas are normal. No peripancreatic infiltration. IMPRESSION: 1. Cirrhosis with manifestations of portal hypertension including large right abdominal collaterals, moderate ascites and mild splenomegaly. 2. Moderate dilatation of the proximal to mid small bowel with decompressed distal small bowel. Evaluation for transition point difficult on this unenhanced exam. Ascites containing umbilical hernia which could contain a small bowel loop. It's unclear if this represents the transition point. A CT of the abdomen and pelvis with IV contrast is recommended if possible. An ileus could appear similar although small bowel obstruction is favored. 3. Cholelithiasis. Electronically signed by: Ignacio Foster M.D. 10/11/2019 5:[address] OF THE HEAD WITHOUT CONTRAST CLINICAL HISTORY: Altered mental status. Evaluate for bleed. COMPARISON STUDY: No previous studies for comparison. TECHNIQUE: Helical axial images of the head were obtained without IV contrast. Automated exposure control was utilized for the study. A dose lowering technique was utilized adhering to the principles of ALARA. FINDINGS: No acute intracranial hemorrhage, midline shift or mass effect is present. The basilar cisterns are patent. No extra-axial collections are present. There are no findings to suggest acute dural sinus thrombosis or acute territorial infarct. No significant calvarial abnormalities are present. Visualized portions of the sinuses and mastoid air cells are clear. A 5 mm cyst at the foramen of Monro is noted. There is no hydrocephalus. IMPRESSION: 1. No acute intracranial findings. 2. 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 No hydrocephalus. Electronically signed by: Ignacio Foster M.D. 10/11/2019 4:59 PM XR chest 1V portable CLINICAL HISTORY: Sepsis COMPARISON STUDY: No previous studies for comparison. FINDINGS: Lung volumes are diminished. Left basilar opacity favors atelectasis. There is no evidence for pulmonary edema. There is slight prominence of the contour of the ascending aorta. Cardiac size is normal. No pneumothorax or pleural effusion is noted. IMPRESSION: 1. No acute findings. 2. Low lung volumes with suspected left basilar atelectasis. Electronically signed by: Ignacio Foster M.D. 10/11/2019 2:[address] OF THE ABDOMEN AND PELVIS WITH CONTRAST CLINICAL HISTORY: Evaluate for SBO/incarcerated hernia. COMPARISON STUDY: CT of the abdomen and pelvis October 11, 2019 at 4:20 PM. TECHNIQUE: Following IV administration of 93 mL of Optiray-320, axial images of the abdomen and pelvis were obtained from the lung bases to the proximal femurs. Images were reviewed in the axial, sagittal, and coronal planes. IV contrast was administered without complication. Automated exposure control was utilized for the study. A dose lowering technique was utilized adhering to the principles of ALARA. CT DOSE: 776.60 mGy.cm FINDINGS: Lung bases are unremarkable. Bilateral gynecomastia is noted. The liver is cirrhotic. Note is made of an indeterminate 6 mm segment 2 hepatic l esion. The main and left portal veins are patent. The right portal vein is suboptimally assessed on this exam due to artifact but is likely patent. Mild splenomegaly is noted. Moderate ascites is noted. Large right abdominal collaterals are noted. The adrenal glands, kidneys and pancreas are normal. There is no pneumatosis, free air or portal venous gas. The mid small bowel is moderately dilated and fluid-filled. Distal small bowel is decompressed. Transition point is likely at the umbilical hernia which also contains ascites as well as a knuckle of small bowel. This is shown on axial image [id number]. Evaluation is difficult given adjacent ascites. Bladder is mildly distended. Appendix is normal. There are no suspicious osseous lesions. Gallstones are noted. IMPRESSION: 1. Small bowel obstruction due to an umbilical hernia which contains a knuckle of small bowel and ascites. 2. Cirrhosis with manifestations of portal hypertension including moderate ascites, large right abdominal collaterals and mild splenomegaly. Indeterminate 6 mm segment 2 hepatic lesion. 3. Cholelithiasis. Electronically signed by: Ignacio Foster M.D. 10/11/2019 6:50 PM ECG Data Attestation: I personally reviewed and interpreted this ECG as follows: Indication: + tachycardia Rate (beats per minute): 116 Rhythm: + sinus tachycardia ECG ST segments: no ST elevation ECG Findings: + Other (QTc is 494 milliseconds ); no PVCs Blood Pressure Blood Pressure Findings: Elevated blood pressure Blood Pressure Disposition: further management by hospitalist [facility] Narrative I did evaluate the patient as noted above. The patient is nonverbal and so I did obtain history from the patient's who is at the bedside. She stated that the patient has been having abdominal pain since eating soup on Sunday. She initially thought this was food poisoning although states that he did not vomit or have any diarrhea. He has been having small bowel movements but has not been eating since Sunday and has only been drinking fluids. Today he seemed confused and so they brought him in. He is nonverbal here and not following commands or answering questions. I was concerned about hepatic encephalopathy. His states that he has never had a problem with this. There was no known history of trauma. She did show me blood work from the end of August which showed a sodium of 128. His bilirubin was just over 3. IV access was established. The patient was placed on a continuous night monitor. Cardiac monitoring: Indication: Tachycardia Rate and rhythm: Sinus tachycardia with interval resolution and recurrence of tachycardia when he gets agitated. He is significantly tachycardic. I did start him on IV fluids with normal saline. I did order a rectal temperature and he is afebrile. I did order and personally review the patient's 12-lead EKG as described above. He has sinus tachycardia without any signs of ectopy or ischemia. I did order and personally reviewed the images of the patient's chest x-ray as described above. No pneumonia is noted. I did order and review the patient's blood work as noted in the electronic medical record. His white blood cell count is not elevated. He is anemic. Platelet count is within normal limits. Electrolytes show a mild hyponatremia 135. The serum ammonia is 112. I did order oral lactulose but he was unable to take p.o. and so I did order a lactulose enema. Lactic acid is 2.8. I did order a CT of the abdomen and pelvis. I did review the images myself as well as the radiology report as described above. He appears to have a small bowel obstruction with a possible transition point at the hernia. I did call [facility] and radiology. Radiology recommended repeating the CT with IV contrast. I did discuss this with the patient's who was agreeable. I did initially not order IV contrast because he has not been eating or drinking very much for the past 2 days and I was concerned about kidney injury but his creatinine is 1.[address] was ordered and he does have small bowel obstruction with small bowel present within the hernia. He was evaluated by Dr. Madison of surgery who did not feel the patient required emergent surgery. He did recommend transfer to a tertiary care center. I also spoke to the seam finisher on-call who originally had recommended a diagnostic peritoneal tap for SBP but after seeing the CAT scan recommended he be transferred to a tertiary care center. She did not recommend NG tube placement. The patient has been having nosebleeds according to the . While in the emergency treatment he has been picking his left nostril and has developed some bleeding from it as well. His INR is also 1.5 and we do not know if he has had esophageal varices. I did treat the patient with IV vitamin K 10 mg. I did speak to the surgeon at [facility], where the patient's family preferred to go over [place], and she accepted the patient for transfer. I did speak to the ED physician and director of [facility] who stated that they would not be able to fly the patient and that fixed wing aircraft would not be feasible. I therefore provided ALS orders and arrange for ambulance transport. Initially the patient was going to be taken by our paramedics but then the weather changed and there were icy conditions in [place] and so the patient would not be able to be transported tonight. I therefore talked to the patient's family who are agreeable to transfer to [facility] as we could not get him to a tertiary care center in [place]. There was a significant delay trying to reach [place]. It took over an hour and 10 minutes to get the transfer center to call me back. When they did call me back they stated that the surgeon was in the OR and unavailable. There was also no backup surgeon. They stated they would try to call me back. I went to update the patient's who stated that the patient's hernia has now deflated spontaneously. The patient is now passing gas significantly on his own. The hernia is completely reduced at this point. The patient's therefore preferred to have the patient go to [place] in t he morning rather than to [facility] as she was concerned that they would not be able to provide the same level of care as [facility]. As the weather prevents him from being transferred tonight he will be hospitalized by the medical service for further care and evaluation. I spoke to the GI physician again to update her on his condition and she recommended continued lactulose enemas as well as antibiotic coverage for SBP. I did hold off on the and that antibiotics as I did wish to speak to the hospitalist as to the choice of antibiotics. I did speak to the assistant case manager and Dr. Haywood. He requested that I speak to the surgeon to ensure that he would be able to act if the patient did worse overnight. I did speak to Dr. Madison again who said he would be able to do so. I did relay this to Dr. Haywood. I did also order a repeat lactulose level. I did also treat the patient with Ativan 0.5 mg IV as described above for agitation during his ED stay. I did keep the patient's family informed throughout his visit. Impression & Plan SBO (small bowel obstruction), Incarcerated hernia, Coagulopathy, Hepatic encephalopathy, Jaundice, Anemia Discharge Plan Visit Data Chief Complaint: GI Assessment Stated Complaint: DEHYDRATED - HASNT ATE SINCE SUN NIGHT ED Provider: Arley Treadwell Discharge Problem: SBO (small bowel obstruction), Incarcerated hernia, Coagulopathy, Hepatic encephalopathy, Jaundice, Anemia Forms Stand Alone Forms: My [facility] Prescriptions Prescriptions: No Action spironolactone 100 mg tablet 100 mg PO DAILY RF: 0 furosemide 20 mg tablet 20 mg PO BID RF: 0 ergocalciferol (vitamin D2) 50,000 unit capsule 50,000 unit PO TH RF: 0 potassium chloride 20 mEq tablet extended release 20 meq PO DAILY RF: 0 Referrals Referrals: PCP,NO [Primary Care Provider] - Discharge Problem: Anemia Qualifiers: Anemia type: unspecified type Qualified Code(s): D64.9 - Anemia, unspecified The scribe's documentation has been prepared under my direction and personally reviewed by me in its entirety. I confirm that the note above accurately reflects all work, treatment, procedures, and medical decision making performed by me.
[2019-10-11] MEDS ORDERED: cefTRIAXone SODIUM 2,000 MG/70 ML BAG IV STA (23:20)
[2019-10-11] MEDS ORDERED: PIPERACILLIN/TAZOBACTAM 4.5 GM/120 ML BAG IV ONE (23:23)
[2019-10-11] MEDS ORDERED: PIPERACILL/TAZOBAC CONSULT ACTIVE PRN (23:23)
[2019-10-11 23:41] LABS: Basophils # (auto) 0.04 K/uL (0-0.2); Basophils % (auto) 0.6 %; Eosinophils # (auto) 0.14 K/uL (0-0.5); Hematocrit (blood only) 29.4 % (42-52); Hemoglobin 10.9 g/dL (14.0-18.0); Immature Granulocytes # (auto) 0.02 K/uL (0.00-0.02); Immature Granulocytes % (auto) 0.3 %; Lymphocytes # (auto) 0.93 K/uL (1.2-3.4); Lymphocytes % (auto) 13.5 %; Mean Corpuscular Hemoglobin 36.6 pg (25-34); Mean Corpuscular Hgb Conc 37.1 g/dL (32-36); Mean Corpuscular Volume 98.7 fL (80-100); Mean Platelet Volume 8.8 fL (7.4-10.4); Monocytes # (auto) 1.28 K/uL (0.11-0.59); Monocytes % (auto) 18.6 %; Neutrophils # (auto) 4.47 K/uL (1.4-6.5); Platelet Count 156 K/uL (130-400); RDW Coefficient of Variation 13.8 % (11.5-14.5); RDW Standard Deviation 49.6 fL (36.4-46.3); Red Blood Count 2.98 M/uL (4.7-6.1); White Blood Count 6.88 K/uL (4.8-10.8)
[2019-10-12 00:01] LABS: Albumin Level 3.1 gm/dl (3.4-5.0); BUN Creatinine Ratio 20.7 (10-20); Creatinine Clr Calc Pharmacy 85.3 ml/min; Est GFR (African American) 87.1; Est GFR (Non-African American) 75.2; Potassium 3.6 mmol/L (3.5-5.1)
[2019-10-12 00:22] LABS: Albumin Globulin Ratio 0.6 (0.9-2); Bilirubin,Total 5.8 mg/dl (0.2-1); Globulin 5.4 gm/dl (2.5-4.0); Total Protein 8.5 gm/dl (6.4-8.2)
--- NOTE | 2019-10-12 01:01 | History & Physical Report ---
Date of Service October 12, 2019 Assessment & Plan (1) Admitted to intensive care unit: Patient is admitted to intensive care unit with consults to party director and general surgery. Present on Admission?: Yes (2) Hepatic encephalopathy: Hepatic encephalopathy/alcoholic cirrhosis/portal hypertension/ascites/splenomegaly- Ammonia level 112 upon admission. Received lactulose in ED, with improvement in ammonia level to 64.4, however, the patient continues to be obtunded. Continue lactulose, may require NG tube. Follow serial CBC with differential, chemistry profile, magnesium and ammonia levels. Holding patient's furosemide, spironolactone and potassium. Plan is to stabilize the patient here, and then will be transferred to a tertiary care center. Present on Admission?: Yes (3) SBO (small bowel obstruction): Small bowel obstruction/incarcerated umbilical hernia- NPO Partially reduced in the ED by general surgery Dr. Madison. Place on Zosyn 4.5 g IV every 8 hours. Famotidine 20 mg IV every 12 hours. Zofran 4 mg IV every 6 hours PRN Present on Admission?: Yes (4) Incarcerated hernia: See above Present on Admission?: Yes (5) Coagulopathy: INR 1.5 upon admission. Received vitamin K 10 mg IV in the ED. Repeat INR in the a.m. Present on Admission?: Yes (6) Jaundice: See above. Total bilirubin 5.6 upon admission Present on Admission?: Yes (7) Anemia: Hemoglobin 10.9 upon admission. Indices are hyperchromic and macrocytic. More suggestive of alcohol use and or pain B12 and folate acid deficiencies. Present on Admission?: Yes (8) Liver cirrhosis, alcoholic: Reported last alcohol was in June 2019 Present on Admission?: Yes (9) Splenomegaly: Monitor. Normal platelets. Present on Admission?: Yes (10) Portal hypertension: Furosemide and Spironolactone will be resumed when more alert. Would add on propranolol at that time as well. Present on Admission?: Yes (11) Ascites due to alcoholic cirrhosis: Patient would likely benefit from IV albumin. Does not look to need a paracentesis at this time. Present on Admission?: Yes (12) Umbilical hernia: As above. Present on Admission?: Yes History of Present Illness Chief Complaint: The patient is brought to the emergency department with complaints of not having eaten for 3 days, dehydration and altered mental status Primary Care Provider: NO PCP The patient is a 54-year-old male with past medical history including alcohol abuse, and alcoholic liver cirrhosis, who presents to the emergency department with complaint of not having eaten for 3 days, nausea vomiting, altered mental status and abdominal pain after eating lemon chicken soup at a restaurant 3 days ago. Family reports that this is his third episode of abdominal pain, nausea vomiting after food intake. His significant other reports that he has already begun to have a liver transplant work-up with [facility], and is interested in returning to the [facility] in [place] as soon as he is well enough to travel. Allergies Allergy/AdvReac Type Severity Reaction Status Date / Time No Known Allergies Allergy Verified 10/11/19 16:36 Home Medications Home Medications Medication Instructions Recorded Confirmed Type ergocalciferol (vitamin D2) 50,000 unit PO TH 10/11/19 10/11/19 History furosemide 20 mg PO BID 10/11/19 10/11/19 History potassium chloride 20 meq PO DAILY 10/11/19 10/11/19 History spironolactone 100 mg PO DAILY 10/11/19 10/11/19 History Past Med/Surg History Medical History Enlarged liver Gallstones Liver cirrhosis, alcoholic Splenomegaly Thickening of wall of gallbladder Umbilical hernia Surgical History No pertinent past surgical history Family History Mother Cancer Melanoma Father Hypertension Heart disease Social History Preferred Language: Latvian Communication Ability Comment: pt ability to communicate at this time is impaired due to illness. 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 HEENT--PERRL, EOMI, mucous membranes and oropharynx dry. Scleral icterus Neck--supple. No JVD. No bruits. Thyroid normal, trachea midline, no adenopathy. Heart--normal S1 and S2. No murmurs, rubs or gallops. Lungs--clear bilaterally, no respiratory distress, no accessory muscle use. Abdomen--decreased bowel sounds and soft. Nontender. Mildly distended. Extremities--no cyanosis or clubbing. No edema. Dermatologic--jaundiced and icteric Neurologic--cranial nerves II through XII grossly intact. Rheumatologic--limited exam Psychiatric--obtunded Results & Data Vital Signs (Past 12 Hours) Vital Signs Temp Pulse Pulse Resp BP BP Pulse Ox 10/12/19 00:11 101 H 16 134/91 95 10/11/19 23:29 106 H 16 178/110 H 93 10/11/19 22:31 120 H 18 95 10/11/19 22:30 105 H 34 H 163/97 H 93 10/11/19 22:16 114 H 25 H 95 10/11/19 22:15 119 H 19 162/104 H 96 10/11/19 22:01 113 H 13 98 10/11/19 22:00 112 H 18 155/99 H 95 10/11/19 21:46 95 H 19 95 10/11/19 21:45 96 H 22 124/84 96 10/11/19 21:31 114 H 26 H 97 10/11/19 21:30 101 H 32 H 138/92 96 10/11/19 21:16 108 H 19 99 10/11/19 21:00 119 H 24 144/88 H 94 10/11/19 20:46 90 14 96 10/11/19 20:45 108 H 15 113/72 96 10/11/19 20:31 95 H 13 96 10/11/19 20:30 95 H 14 121/75 96 10/11/19 20:16 106 H 15 96 10/11/19 20:15 115 H 19 145/84 H 96 10/11/19 20:01 112 H 18 130/76 95 10/11/19 20:00 114 H 17 95 10/11/19 19:46 119 H 16 98 10/11/19 19:45 117 H 27 H 197/164 H 97 10/11/19 19:31 109 H 15 97 10/11/19 19:30 106 H 15 144/86 H 97 10/11/19 19:15 112 H 18 120/92 96 10/11/19 19:05 108 H 15 96 10/11/19 19:04 118 H 19 157/103 H 96 10/11/19 18:00 118 H 17 151/85 H 10/11/19 17:45 124 H 19 146/88 H 10/11/19 17:30 118 H 18 156/86 H 10/11/19 17:15 122 H 21 149/88 H 10/11/19 17:00 120 H 20 148/82 H 10/11/19 16:45 114 H 15 132/77 10/11/19 16:15 117 H 17 139/89 97 10/11/19 15:58 97.7 F 128 H 20 100 10/11/19 15:56 117 H 17 136/79 97 10/11/19 14:05 98.1 F 128 H 20 156/97 H 100 Laboratory Results Laboratory Results WBC 6.88 K/uL (4.8-10.8) 10/11/19 23:30 RBC 2.98 M/uL (4.7-6.1) L 10/11/19 23:30 Hgb 10.9 g/dL (14.0-18.0) L 10/11/19 23:30 POC Hgb 11.2 g/dl (14.0-18.0) L 10/11/19 15:51 Hct 29.4 % (42-52) L 10/11/19 23:30 POC Hct 33 % (42-52) L 10/11/19 15:51 MCV 98.7 fL (80-100) 10/11/19 23:30 MCH 36.6 pg (25-34) H 10/11/19 23:30 MCHC 37.1 g/dL (32-36) H 10/11/19 23:30 RDW Std Deviation 49.6 fL (36.4-46.3) H 10/11/19 23:30 RDW Coeff of Victor Manuel 13.8 % (11.5-14.5) 10/11/19 23:30 Plt Count 156 K/uL (130-400) 10/11/19 23:30 MPV 8.8 fL (7.4-10.4) 10/11/19 23:30 Immature Gran % (Auto) 0.3 % 10/11/19 23:30 Neut % (Auto) 65.0 % 10/11/19 23:30 Lymph % (Auto) 13.5 % 10/11/19 23:30 [place] % (Auto) 18.6 % 10/11/19 23:30 Eos % (Auto) 2.0 % 10/11/19 23:30 Baso % (Auto) 0.6 % 10/11/19 23:30 Immature Gran # (Auto) 0.02 K/uL (0.00-0.02) 10/11/19 23:30 Neut # (Auto) 4.47 K/uL (1.4-6.5) 10/11/19 23:30 Lymph # (Auto) 0.93 K/uL (1.2-3.4) L 10/11/19 23:30 [place] # (Auto) 1.28 K/uL (0.11-0.59) H 10/11/19 23:30 Eos # (Auto) 0.14 K/uL (0-0.5) 10/11/19 23:30 Baso # (Auto) 0.04 K/uL (0-0.2) 10/11/19 23:30 PT 14.8 Seconds (9.0-12.0) H 10/11/19 15:40 INR 1.5 (0.9-1.1) H 10/11/19 15:40 APTT 33.6 Seconds (21.0-31.0) H 10/11/19 15:40 PTT Ratio 1.2 10/11/19 15:40 POC Sodium 137 mEq/L (135-144) 10/11/19 15:51 Sodium 137 mmol/L (136-145) 10/11/19 23:30 POC Potassium 3.8 mEq/L (3.3-5.0) 10/11/19 15:51 Potassium 3.6 mmol/L (3.5-5.1) 10/11/19 23:30 POC Chloride 103 mEq/L (101-112) 10/11/19 15:51 Chloride 106 mmol/L (98-107) 10/11/19 23:30 Carbon Dioxide 23 mmol/L (21-32) 10/11/19 23:30 POC Total CO2 22 mEq/l (24-31) L 10/11/19 15:51 Anion Gap 8.0 (3-11) 10/11/19 23:30 POC Anion Gap 16.0 mmol/L (16-25) 10/11/19 15:51 POC BUN 21 mg/dl (7-18) H 10/11/19 15:51 BUN 23 mg/dl (7-18) H 10/11/19 23:30 Creatinine 1.10 mg/dl (0.6-1.4) 10/11/19 23:30 POC Creatinine 1.1 mg/dl (0.6-1.3) 10/11/19 15:51 Est Cr Clr Drug Dosing 85.3 ml/min 10/11/19 23:30 Est GFR ( Amer) 87.1 10/11/19 23:30 Est GFR (Non-Af Amer) 75.2 10/11/19 23:30 BUN/Creatinine Ratio 20.7 (10-20) H 10/11/19 23:30 Glucose 114 mg/dl (70-99) H 10/11/19 23:30 POC Glucose (other) 123 mg/dl (70-99) H 10/11/19 15:51 Lactate 2.8 mmol/L (0.4-2.0) H* 10/11/19 18:01 Calcium 9.0 mg/dl (8.5-10.1) 10/11/19 23:30 POC Ioniz Calcium Manpreet 1.14 mmol/l (1.12-1.32) 10/11/19 15:51 Magnesium 2.0 mg/dl (1.8-2.4) 10/11/19 23:30 Total Bilirubin 5.8 mg/dl (0.2-1) H 10/11/19 23:30 AST 41 U/L (15-37) H 10/11/19 23:30 ALT 25 U/L (12-78) 10/11/19 23:30 Alkaline Phosphatase 95 U/L (45-117) 10/11/19 23:30 Ammonia 64.4 umol/L (11-32) H 10/11/19 23:30 Total Protein 8.5 gm/dl (6.4-8.2) H 10/11/19 23:30 Albumin 3.1 gm/dl (3.4-5.0) L 10/11/19 23:30 Globulin 5.4 gm/dl (2.5-4.0) H 10/11/19 23:30 Albumin/Globulin Ratio 0.6 (0.9-2) L 10/11/19 23:30 Lipase 276 U/L (73-393) 10/11/19 15:40 Diagnostic Findings [place] [phone] CT Scan Report Patient: CARMELO ESCOBARAdmit Date: 10/11/19 MR#: [id number]: 1 [facility] Acct ID:[id number]: Date: 1965[facility] Zip: [place] [address] Age: 54Location: ED Sex: M Room/Bed: Att Phy:Diagnosis: DEHYDRATED - HASNT ATE SINCE Sun Shamika Phy: PCP,NOService Date: 10/11/19 Fam Phy:Interpreting Phy: Ignacio Foster MD Admit Phy: Ordering Phy: Arley Treadwell MD cc: ~ CT OF THE ABDOMEN AND PELVIS WITHOUT CONTRAST CLINICAL HISTORY: Right-sided abdominal pain. Evaluate for cholecystitis. COMPARISON STUDY: Abdominal ultrasound July 23, 2019. TECHNIQUE: Axial images of the abdomen and pelvis were obtained without IV contrast. Images were reviewed in the axial, sagittal, and coronal planes. Automated exposure control was utilized for the study. A dose lowering technique was utilized adhering to the principles of ALARA. FINDINGS: Imaged portions of the lower chest are unremarkable. Bilateral gynecomastia is noted. Evaluation of the abdomen and pelvis is suboptimal on this unenhanced exam. No pneumatosis, free air or portal venous gas is present. The liver is cirrhotic. There are gallstones within the gallbladder. The gallbladder is not distended. Large right abdominal collaterals are noted. The spleen is mildly enlarged. Moderate abdominal and pelvic ascites is noted. Proximal to mid small bowel is moderately dilated. Distal small bowel is decompressed. These findings favor a small bowel obstruction however evaluation for transition point is difficult on this unenhanced exam. An ascites containing umbilical hernia is noted. Small bowel loops may protrude into this hernia sac. Its unclear if this represents the transition point. No inguinal hernias are present. Bladder is mildly distended. There are no suspicious osseous lesions. No hepatic lesions are identified although sensitivity is diminished on this unenhanced examination. The adrenal glands, kidneys and pancreas are normal. No peripancreatic infiltration. IMPRESSION: 1. Cirrhosis with manifestations of portal hypertension including large right abdominal collaterals, moderate ascites and mild splenomegaly. 2. Moderate dilatation of the proximal to mid small bowel with decompressed distal small bowel. Evaluation for transition point difficult on this unenhanced exam. Ascites containing umbilical hernia which could contain a small bowel loop. It's unclear if this represents the transition point. A CT of the abdomen and pelvis with IV contrast is recommended if possible. An ileus could appear similar although small bowel obstruction is favored. 3. Cholelithiasis. Electronically signed by: Ignacio Foster M.D. 10/11/2019 5:14 PM Dictated: 10/11/190 Transcribed: 10/11/19 170 [place], [place] [phone] CT Scan Report Patient: CARMELO ESCOBARAdmit Date: 10/11/19 MR#: [id number]: 1 [facility] Acct ID:[id number]: Date: 1965[facility] Zip: [place] [address] Age: 54Location: ED Sex: M Room/Bed: Att Phy:Diagnosis: DEHYDRATED - HASNT ATE SINCE Sun Shamika Phy: Lino MENDIETArvice Date: 10/11/19 Fam Phy:Interpreting Phy: Ignacio Foster MD Admit Phy: Ordering Phy: Arley Treadwell MD cc: ~ CT OF THE HEAD WITHOUT CONTRAST CLINICAL HISTORY: Altered mental status. Evaluate for bleed. COMPARISON STUDY: No previous studies for comparison. TECHNIQUE: Helical axial images of the head were obtained without IV contrast. Automated exposure control was utilized for the study. A dose lowering technique was utilized adhering to the principles of ALARA. FINDINGS: No acute intracranial hemorrhage, midline shift or mass effect is present. The basilar cisterns are patent. No extra-axial collections are present. There are no findings to suggest acute dural sinus thrombosis or acute territorial infarct. No significant calvarial abnormalities are present. Visualized portions of the sinuses and mastoid air cells are clear. A 5 mm cyst at the foramen of Monro is noted. There is no hydrocephalus. IMPRESSION: 1. No acute intracranial findings. 2. 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 No hydrocephalus. Electronically signed by: Ignacio Foster M.D. 10/11/2019 4:59 PMr Dictated: 10/11/19 1656 Transcribed: 10/11/191655 [facility], [place] [phone] XRay Report Patient: CARMELO ESCOBARAdmit Date: 10/11/19 MR#: [id number]: 1 [facility] Acct ID:[id number]: Date: 1965[facility] Zip: [place] [address] Age: 54Location: ED Sex: M Room/Bed: Att Phy:Diagnosis: DEHYDRATED - HASNT ATE SINCE Sun Shamika Phy: Jared Katz Jr, DOService Date: 10/11/19 Fam Phy:Interpreting Phy: Ignacio Foster MD Admit Phy: Ordering Phy: Arley Treadwell MD cc: ~ XR chest 1V portable CLINICAL HISTORY: Sepsis COMPARISON STUDY: No previous studies for comparison. FINDINGS: Lung volumes are diminished. Left basilar opacity favors atelectasis. There is no evidence for pulmonary edema. There is slight prominence of the contour of the ascending aorta. Cardiac size is normal. No pneumothorax or pleural effusion is noted. IMPRESSION: 1. No acute findings. 2. Low lung volumes with suspected left basilar atelectasis. Electronically signed by: Ignacio Foster M.D. 10/11/2019 2:55 PM Dictated: 10/11/19 1454 Transcribed: 10/11/19 1454 [facility], [place] [phone] CT Scan Report Patient: CARMELO ESCOBARAdmit Date: 10/11/19 MR#: [id number]: 1 [facility] Acct ID:[id number]: Date: 1965[facility] Zip: [place] [address] Age: 54Location: ED Sex: M Room/Bed: Att Phy:Diagnosis: DEHYDRATED - HASNT ATE SINCE SUN NIGHT Shamika Phy: PCP,NOService Date: 10/11/19 [facility] Phy:Interpreting Phy: Ignacio Foster MD Admit Phy: Ordering Phy: Arley Treadwell MD cc: ~ CT OF THE ABDOMEN AND PELVIS WITH CONTRAST CLINICAL HISTORY: Evaluate for SBO/incarcerated hernia. COMPARISON STUDY: CT of the abdomen and pelvis October 11, 2019 at 4:20 PM. TECHNIQUE: Following IV administration of 93 mL of Optiray-320, axial images of the abdomen and pelvis were obtained from the lung bases to the proximal femurs. Images were reviewed in the axial, sagittal, and coronal planes. IV contrast was administered without complication. Automated exposure control was utilized for the study. A dose lowering technique was utilized adhering to the principles of ALARA. CT DOSE: 776.60 mGy.cm FINDINGS: Lung bases are unremarkable. Bilateral gynecomastia is noted. The liver is cirrhotic. Note is made of an indeterminate 6 mm segment 2 hepatic lesion. The main and left portal veins are patent. The right portal vein is suboptimally assessed on this exam due to artifact but is likely patent. Mild splenomegaly is noted. Moderate ascites is noted. Large right abdominal collaterals are noted. The adrenal glands, kidneys and pancreas are normal. There is no pneumatosis, free air or portal venous gas. The mid small bowel is moderately dilated and fluid-filled. Distal small bowel is decompressed. Transition point is likely at the umbilical hernia which also contains ascites a s well as a knuckle of small bowel. This is shown on axial image 300 [id number]. Evaluation is difficult given adjacent ascites. Bladder is mildly distended. Appendix is normal. There are no suspicious osseous lesions. Gallstones are noted. IMPRESSION: 1. Small bowel obstruction due to an umbilical hernia which contains a knuckle of small bowel and ascites. 2. Cirrhosis with manifestations of portal hypertension including moderate ascites, large right abdominal collaterals and mild splenomegaly. Indeterminate 6 mm segment 2 hepatic lesion. 3. Cholelithiasis. Electronically signed by: Ignacio Foster M.D. 10/11/2019 6:50 PM Dictated: 10/11/191834 Transcribed: 10/11/191834 Code Status & VTE Plan Code Status Full code VTE Prophylaxis Plan VTE Prophylaxis will be ordered: Yes Critical Care Time Critical Care Time: Yes Total Critical Care Time: 45 Total critical care time was 45 minutes PG Care Time/CCT Total # of Minutes Spent Total Time Spent with Patient: Total time spent is greater than 50% in coordination of care (as documented) at patient's floor/unit and/or counseling patient: Critical Care Time: Yes Total Critical Care Time: 45 (1) Anemia Anemia type: unspecified type Qualified Code(s): D64.9 - Anemia, unspecified
--- NOTE | 2019-10-12 01:28 | Critical Care Consultation ---
Date of Consultation October 12, 2019 Assessment & Plan (1) Admitted to intensive care unit: Reason Critically Ill: 54-year-old male here for altered mental status secondary to small bowel obstruction incarcerated hernia in the setting of alcoholic cirrhosis. Past medical history significant for alcohol abuse(last drink June 2019), hepatomegaly, gallstones, liver cirrhosis, splenomegaly, thickening of the wall of the gallbladder, umbilical hernia Neuro: -[facility] ICU: POSITIVE -Altered mental status secondary to metabolic/hepatic encephalopathy in the setting of small bowel obstruction secondary to incarcerated hernia -Lactulose 4 times daily for hyper ammonemia Cardiac: Tachycardia In the setting of small bowel obstruction with incarcerated hernia and liver cirrhosis, expect to resolve with treatment of the underlying conditions Respiratory: -No concerns at present patient is maintaining his airway and saturating adequately on room air GI: -NPO diet Small bowel obstruction In the setting of incarcerated hernia, CT abdomen and pelvis is consistent with.Patient was evaluated by surgery who felt he did not have evidence of bowel ischemia. They recommend transfer to a tertiary care center and placement of an NG tube on low intermittent suction. Cirrhosis History of alcoholic cirrhosis diagnosed in July of this year. Per the patient's family was evaluated at the [facility]. Patient currently jaundiced, with hyperammonemia, AST to ALT ratio of 2:1, and no evidence of coagulopathy on labs. Patient is obtunded and tachycardic. Will require lactulose to normalize ammonia levels, as well as vitamin K to reverse coagulopathy. Ultimately will require transfer to tertiary care center. He will be monitored in the ICU overnight and subsequently transferred tomorrow. RENAL/LYTES: -No significant electrolyte derangement. -Replace lytes as needed. : - No concerns at this time. ENDO: -No history of diabetes HEME: -Stable H&H. -Will monitor for any drops in the setting of Heparin gtt Elevated INR in the setting of alcoholic cirrhosis Consider vitamin K therapy ID: - No concerns for infection at this point. - Monitor fever curve. - Received 2 g ceftriaxone in the ED and a dose of Zosyn INTEGUMENTARY: -No concerns at present LINES/IV ACCESS: -PIVs intact. DVT PROPHYLAXIS: -Contraindicated in the setting of elevated INR Dispo: ICU pending transfer to [facility] Thank you for allowing us to be part of this patient's care. Please refer to Dr. Delarosa's documentation for any further recommendations. (2) SBO (small bowel obstruction): (3) Incarcerated hernia: (4) Hepatic encephalopathy: (5) Jaundice: (6) Dehydration: (7) Liver cirrhosis, alcoholic: (8) Umbilical hernia: History of Present Illness History of Present Illness Patient is a 54-year-old male with a past medical history of alcohol abuse(last drink June 2019), hepatomegaly, gallstones, liver cirrhosis, splenomegaly, thickening of the wall of the gallbladder, umbilical hernia who presents after 2 days of abdominal pain with worsening mental status. This episode began 3 days ago when he was at the [employer] eating lemon chicken soup. 30 minutes after he ate the patient began to experience nausea but did not vomit and did not have diarrhea. Per the family this is the third episode of abdominal pain after food intake. Since eating at the restaurant 3 days ago the patient has not had any p.o. intake besides fluids, he had 2 small BMs and his family states his skin has become more yellow. Family reports the patient was alert and oriented and mentating well until today when he became confused. He presented to the emergency department secondary to worsening mental status and abdominal pain. They also endorse that he had recent nosebleeds, denies a history of h ematochezia unsure of melena. Unable to obtain adequate history from the patient as he is unable to communicate secondary to altered mental status. Surgery was consulted and evaluated the patient in the emergency department. They felt he did not have evidence of bowel ischemia they are recommending transfer to a tertiary care center. CT scan during this admission demonstrates ascites as well as small bowel obstruction suspected to be secondary to umbilical hernia. The ICU team was consulted for further evaluation and management until transport to [facility] could be secured. Of note the patient reports that he has been seen in the [facility] in [facility] regarding his cirrhosis/liver transplant work-up. His is repeatedly requested transport to [facility] for further evaluation and management. We explained that this was likely not possible without $100,000 commitment for an air ambulance transport. She was provided with 2 companies 1 out of [place] and [facility] They are currently requesting transfer to [facility] Allergies Allergy/AdvReac Type Severity Reaction Status Date / Time No Known Allergies Allergy Verified 10/11/19 16:36 Home Medications Home Medications Medication Instructions Recorded Confirmed Type ergocalciferol (vitamin D2) 50,000 unit PO TH 10/11/19 10/11/19 History furosemide 20 mg PO BID 10/11/19 10/11/19 History potassium chloride 20 meq PO DAILY 10/11/19 10/11/19 History spironolactone 100 mg PO DAILY 10/11/19 10/11/19 History Patient History Medical History Enlarged liver Gallstones Liver cirrhosis, alcoholic Splenomegaly Thickening of wall of gallbladder Umbilical hernia Surgical History No pertinent past surgical history Family History Mother Cancer Melanoma Father Hypertension Heart disease Social History Preferred Language: Latvian Communication Ability Comment: pt ability to communicate at this time is impaired due to illness. 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 Respiratory: Clear to auscultation bilaterally without significant wheezes, rales, rhonchi. Bilateral symmetrical chest rise GI: Distended abdomen, bowel sounds present, no rigidity or guarding MSK: Unable to assess secondary to mental status Skin: Becoming jaundice Neuro: Unable to assess secondary to mental status Psych: Unable to assess secondary to mental status Results & Data Vital Signs (Past 12 Hours) Vital Signs Temp Pulse Pulse Resp BP BP Pulse Ox 10/12/19 00:11 101 H 16 134/91 95 10/11/19 23:29 106 H 16 178/110 H 93 10/11/19 22:31 120 H 18 95 10/11/19 22:30 105 H 34 H 163/97 H 93 10/11/19 22:16 114 H 25 H 95 10/11/19 22:15 119 H 19 162/104 H 96 10/11/19 22:01 113 H 13 98 10/11/19 22:00 112 H 18 155/99 H 95 10/11/19 21:46 95 H 19 95 10/11/19 21:45 96 H 22 124/84 96 10/11/19 21:31 114 H 26 H 97 10/11/19 21:30 101 H 32 H 138/92 96 10/11/19 21:16 108 H 19 99 10/11/19 21:00 119 H 24 144/88 H 94 10/11/19 20:46 90 14 96 10/11/19 20:45 108 H 15 113/72 96 10/11/19 20:31 95 H 13 96 10/11/19 20:30 95 H 14 121/75 96 10/11/19 20:16 106 H 15 96 10/11/19 20:15 115 H 19 145/84 H 96 10/11/19 20:01 112 H 18 130/76 95 10/11/19 20:00 114 H 17 95 10/11/19 19:46 119 H 16 98 10/11/19 19:45 117 H 27 H 197/164 H 97 10/11/19 19:31 109 H 15 97 10/11/19 19:30 106 H 15 144/86 H 97 10/11/19 19:15 112 H 18 120/92 96 10/11/19 19:05 108 H 15 96 10/11/19 19:04 118 H 19 157/103 H 96 10/11/19 18:00 118 H 17 151/85 H 10/11/19 17:45 124 H 19 146/88 H 10/11/19 17:30 118 H 18 156/86 H 10/11/19 17:15 122 H 21 149/88 H 10/11/19 17:00 120 H 20 148/82 H 10/11/19 16:45 114 H 15 132/77 10/11/19 16:15 117 H 17 139/89 97 10/11/19 15:58 36.5 C 128 H 20 100 10/11/19 15:56 117 H 17 136/79 97 10/11/19 14:05 36.7 C 128 H 20 156/97 H 100 Laboratory Results 10/12/19 10/11/19 10/11/19 Range/Units 01:45 23:30 23:30 WBC (4.8-10.8) K/uL RBC (4.7-6.1) M/uL Hgb (14.0-18.0) g/dL POC Hgb (14.0-18.0) g/dl Hct (42-52) % POC Hct (42-52) % MCV (80-100) fL MCH (25-34) pg MCHC (32-36) g/dL RDW Std Deviation (36.4-46.3) fL RDW Coeff of Victor Manuel (11.5-14.5) % Plt Count (130-400) K/uL MPV (7.4-10.4) fL Immature Gran % (Auto) % Neut % (Auto) % Lymph % (Auto) % [place] % (Auto) % Eos % (Auto) % Baso % (Auto) % Immature Gran # (Auto) (0.00-0.02) K/uL Neut # (Auto) (1.4-6.5) K/uL Lymph # (Auto) (1.2-3.4) K/uL [place] # (Auto) (0.11-0.59) K/uL Eos # (Auto) (0-0.5) K/uL Baso # (Auto) (0-0.2) K/uL PT (9.0-12.0) Seconds INR (0.9-1.1) APTT (21.0-31.0) Seconds PTT Ratio POC Sodium (135-144) mEq/L Sodium 137 (136-145) mmol/L POC Potassium (3.3-5.0) mEq/L Potassium 3.6 (3.5-5.1) mmol/L POC Chloride (101-112) mEq/L Chloride 106 (98-107) mmol/L Carbon Dioxide 23 (21-32) mmol/L POC Total CO2 (24-31) mEq/l Anion Gap 8.0 (3-11) POC Anion Gap (16-25) mmol/L POC BUN (7-18) mg/dl BUN 23 H (7-18) mg/dl Creatinine 1.10 (0.6-1.4) mg/dl POC Creatinine (0.6-1.3) mg/dl Est Cr Clr Drug Dosing 85.3 ml/min Est GFR ( Amer) 87.1 Est GFR (Non-Af Amer) 75.2 BUN/Creatinine Ratio 20.7 H (10-20) Glucose 114 H (70-99) mg/dl POC Glucose (other) (70-99) mg/dl Lactate (0.4-2.0) mmol/L Calcium 9.0 (8.5-10.1) mg/dl POC Ioniz Calcium Manpreet (1.12-1.32) mmol/l Magnesium 2.0 (1.8-2.4) mg/dl Total Bilirubin 5.8 H (0.2-1) mg/dl AST 41 H (15-37) U/L ALT 25 (12-78) U/L Alkaline Phosphatase 95 (45-117) U/L Ammonia 64.4 H (11-32) umol/L Total Protein 8.5 H (6.4-8.2) gm/dl Albumin 3.1 L (3.4-5.0) gm/dl Globulin 5.4 H (2.5-4.0) gm/dl Albumin/Globulin Ratio 0.6 L (0.9-2) Lipase (73-393) U/L Nasal Screen MRSA (PCR) Pending 10/11/19 10/11/19 10/11/19 Range/Units 23:30 18:01 15:51 WBC 6.88 (4.8-10.8) K/uL RBC 2.98 L (4.7-6.1) M/uL Hgb 10.9 L (14.0-18.0) g/dL POC Hgb 11.2 L (14.0-18.0) g/dl Hct 29.4 L (42-52) % POC Hct 33 L (42-52) % MCV 98.7 (80-100) fL MCH 36.6 H (25-34) pg MCHC 37.1 H (32-36) g/dL RDW Std Deviation 49.6 H (36.4-46.3) fL RDW Coeff of Victor Manuel 13.8 (11.5-14.5) % Plt Count 156 (130-400) K/uL MPV 8.8 (7.4-10.4) fL Immature Gran % (Auto) 0.3 % Neut % (Auto) 65.0 % Lymph % (Auto) 13.5 % [place] % (Auto) 18.6 % Eos % (Auto) 2.0 % Baso % (Auto) 0.6 % Immature Gran # (Auto) 0.02 (0.00-0.02) K/uL Neut # (Auto) 4.47 (1.4-6.5) K/uL Lymph # (Auto) 0.93 L (1.2-3.4) K/uL [place] # (Auto) 1.28 H (0.11-0.59) K/uL Eos # (Auto) 0.14 (0-0.5) K/uL Baso # (Auto) 0.04 (0-0.2) K/uL PT (9.0-12.0) Seconds INR (0.9-1.1) APTT (21.0-31.0) Seconds PTT Ratio POC Sodium 137 (135-144) mEq/L Sodium (136-145) mmol/L POC Potassium 3.8 (3.3-5.0) mEq/L Potassium (3.5-5.1) mmol/L POC Chloride 103 (101-112) mEq/L Chloride (98-107) mmol/L Carbon Dioxide (21-32) mmol/L POC Total CO2 22 L (24-31) mEq/l Anion Gap (3-11) POC Anion Gap 16.0 (16-25) mmol/L POC BUN 21 H (7-18) mg/dl BUN (7-18) mg/dl Creatinine (0.6-1.4) mg/dl POC Creatinine 1.1 (0.6-1.3) mg/dl Est Cr Clr Drug Dosing ml/min Est GFR ( Amer) Est GFR (Non-Af Amer) BUN/Creatinine Ratio (10-20) Glucose (70-99) mg/dl POC Glucose (other) 123 H (70-99) mg/dl Lactate 2.8 H* (0.4-2.0) mmol/L Calcium (8.5-10.1) mg/dl POC Ioniz Calcium Manpreet 1.14 (1.12-1.32) mmol/l Magnesium (1.8-2.4) mg/dl Total Bilirubin (0.2-1) mg/dl AST (15-37) U/L ALT (12-78) U/L Alkaline Phosphatase (45-117) U/L Ammonia (11-32) umol/L Total Protein (6.4-8.2) gm/dl Albumin (3.4-5.0) gm/dl Globulin (2.5-4.0) gm/dl Albumin/Globulin Ratio (0.9-2) Lipase (73-393) U/L Nasal Screen MRSA (PCR) 10/11/19 10/11/19 10/11/19 Range/Units 15:40 15:40 15:40 WBC (4.8-10.8) K/uL RBC (4.7-6.1) M/uL Hgb (14.0-18.0) g/dL POC Hgb (14.0-18.0) g/dl Hct (42-52) % POC Hct (42-52) % MCV (80-100) fL MCH (25-34) pg MCHC (32-36) g/dL RDW Std Deviation (36.4-46.3) fL RDW Coeff of Victor Manuel (11.5-14.5) % Plt Count (130-400) K/uL MPV (7.4-10.4) fL Immature Gran % (Auto) % Neut % (Auto) % Lymph % (Auto) % [place] % (Auto) % Eos % (Auto) % Baso % (Auto) % Immature Gran # (Auto) (0.00-0.02) K/uL Neut # (Auto) (1.4-6.5) K/uL Lymph # (Auto) (1.2-3.4) K/uL [place] # (Auto) (0.11-0.59) K/uL Eos # (Auto) (0-0.5) K/uL Baso # (Auto) (0-0.2) K/uL PT 14.8 H (9.0-12.0) Seconds INR 1.5 H (0.9-1.1) APTT 33.6 H (21.0-31.0) Seconds PTT Ratio 1.2 POC Sodium (135-144) mEq/L Sodium 135 L (136-145) mmol/L POC Potassium (3.3-5.0) mEq/L Potassium 3.8 (3.5-5.1) mmol/L POC Chloride (101-112) mEq/L Chloride 103 (98-107) mmol/L Carbon Dioxide 25 (21-32) mmol/L POC Total CO2 (24-31) mEq/l Anion Gap 7.0 (3-11) POC Anion Gap (16-25) mmol/L POC BUN (7-18) mg/dl BUN 22 H (7-18) mg/dl Creatinine 1.16 (0.6-1.4) mg/dl POC Creatinine (0.6-1.3) mg/dl Est Cr Clr Drug Dosing 80.9 ml/min Est GFR ( Amer) 81.7 Est GFR (Non-Af Amer) 70.5 BUN/Creatinine Ratio 19.0 (10-20) Glucose 121 H (70-99) mg/dl POC Glucose (other) (70-99) mg/dl Lactate 2.8 H* (0.4-2.0) mmol/L Calcium 9.4 (8.5-10.1) mg/dl POC Ioniz Calcium Manpreet (1.12-1.32) mmol/l Magnesium (1.8-2.4) mg/dl Total Bilirubin 5.6 H (0.2-1) mg/dl AST 44 H (15-37) U/L ALT 24 (12-78) U/L Alkaline Phosphatase 99 (45-117) U/L Ammonia (11-32) umol/L Total Protein 8.9 H (6.4-8.2) gm/dl Albumin 3.3 L (3.4-5.0) gm/dl Globulin 5.6 H (2.5-4.0) gm/dl Albumin/Globulin Ratio 0.6 L (0.9-2) Lipase 276 (73-393) U/L Nasal Screen MRSA (PCR) 10/11/19 10/11/19 Range/Units 15:40 15:40 WBC 7.23 (4.8-10.8) K/uL RBC 2.98 L (4.7-6.1) M/uL Hgb 10.9 L (14.0-18.0) g/dL POC Hgb (14.0-18.0) g/dl Hct 29.8 L (42-52) % POC Hct (42-52) % MCV 100.0 (80-100) fL MCH 36.6 H (25-34) pg MCHC 36.6 H (32-36) g/dL RDW Std Deviation 49.7 H (36.4-46.3) fL RDW Coeff of Victor Manuel 13.7 (11.5-14.5) % Plt Count 175 (130-400) K/uL MPV 8.5 (7.4-10.4) fL Immature Gran % (Auto) 0.3 % Neut % (Auto) 68.1 % Lymph % (Auto) 12.3 % [place] % (Auto) 17.2 % Eos % (Auto) 1.5 % Baso % (Auto) 0.6 % Immature Gran # (Auto) 0.02 (0.00-0.02) K/uL Neut # (Auto) 4.93 (1.4-6.5) K/uL Lymph # (Auto) 0.89 L (1.2-3.4) K/uL [place] # (Auto) 1.24 H (0.11-0.59) K/uL Eos # (Auto) 0.11 (0-0.5) K/uL Baso # (Auto) 0.04 (0-0.2) K/uL PT (9.0-12.0) Seconds INR (0.9-1.1) APTT (21.0-31.0) Seconds PTT Ratio POC Sodium (135-144) mEq/L Sodium (136-145) mmol/L POC Potassium (3.3-5.0) mEq/L Potassium (3.5-5.1) mmol/L POC Chloride (101-112) mEq/L Chloride (98-107) mmol/L Carbon Dioxide (21-32) mmol/L POC Total CO2 (24-31) mEq/l Anion Gap (3-11) POC Anion Gap (16-25) mmol/L POC BUN (7-18) mg/dl BUN (7-18) mg/dl Creatinine (0.6-1.4) mg/dl POC Creatinine (0.6-1.3) mg/dl Est Cr Clr Drug Dosing ml/min Est GFR ( Amer) Est GFR (Non-Af Amer) BUN/Creatinine Ratio (10-20) Glucose (70-99) mg/dl POC Glucose (other) (70-99) mg/dl Lactate (0.4-2.0) mmol/L Calcium (8.5-10.1) mg/dl POC Ioniz Calcium Manpreet (1.12-1.32) mmol/l Magnesium (1.8-2.4) mg/dl Total Bilirubin (0.2-1) mg/dl AST (15-37) U/L ALT (12-78) U/L Alkaline Phosphatase (45-117) U/L Ammonia 112.0 H (11-32) umol/L Total Protein (6.4-8.2) gm/dl Albumin (3.4-5.0) gm/dl Globulin (2.5-4.0) gm/dl Albumin/Globulin Ratio (0.9-2) Lipase (73-393) U/L Nasal Screen MRSA (PCR) Medications Administered Current Inpatient Medications Ioversol (Optiray 320 100ml) 93 ml IV ONCE PRN PRN Reason: Interaction Checking Stop: 10/15/19 18:26 Last Admin: 10/11/19 18:27 Dose: 93 ml Documented by: Miscellaneous (Icu Protocol For Hyperglycemia) 1 ea N/A PRN PRN; Protocol PRN Reason: Hyperglycemia Protocol Stop: 10/14/19 01:48 Miscellaneous Information (Consult) 1 ea N/A UD PRN PRN Reason: Consult Stop: 11/10/19 23:22 Resident Activity Tracking Resident Involvement: Resident Care Provided Care Provided: Adult Hospital Medicine (ICU)
[2019-10-12] MEDS ORDERED: ICU PROTOCOL FOR HYPERGLYCEMIA PRN (01:49)
[2019-10-12 02:59] LABS: Appearance Urine Clear (Clear); Bilirubin Urine Negative (Negative); Blood Urine Trace (Negative); Color Urine Yellow; Glucose Urine UA Negative (Negative); Ketones Urine Negative (Negative); Leukocyte Esterase Urine Negative (Negative); Nitrite Urine Negative (Negative); Protein Urine Negative (Negative); Specific Gravity Urine 1.015 (1.000-1.030); Urobilinogen Urine Positive (Negative)
[2019-10-12 03:06] LABS: Bacteria Urine Negative (Negative); RBC Urine 0-4 /hpf (0-4); WBC Urine 0-5 /hpf (0-5)
[2019-10-12 03:07] LABS: INR 1.5 (0.9-1.1); Prothrombin Time 15.3 Seconds (9.0-12.0)
[2019-10-12 03:36] LABS: Basophils # (auto) 0.05 K/uL (0-0.2); Basophils % (auto) 0.8 %; Hematocrit (blood only) 28.8 % (42-52); Hemoglobin 10.6 g/dL (14.0-18.0); Immature Granulocytes # (auto) 0.01 K/uL (0.00-0.02); Immature Granulocytes % (auto) 0.2 %; Lymphocytes # (auto) 1.17 K/uL (1.2-3.4); Lymphocytes % (auto) 17.8 %; Mean Corpuscular Hemoglobin 36.9 pg (25-34); Mean Corpuscular Hgb Conc 36.8 g/dL (32-36); Mean Corpuscular Volume 100.3 fL (80-100); Mean Platelet Volume 8.7 fL (7.4-10.4); Monocytes % (auto) 16.7 %; Neutrophils # (auto) 4.05 K/uL (1.4-6.5); Neutrophils % (auto) 61.5 %; Platelet Count 159 K/uL (130-400); RDW Coefficient of Variation 13.8 % (11.5-14.5); Red Blood Count 2.87 M/uL (4.7-6.1); White Blood Count 6.58 K/uL (4.8-10.8)
[2019-10-12 03:49] LABS: BUN Creatinine Ratio 18.7 (10-20); Calcium 8.7 mg/dl (8.5-10.1); Creatinine Clr Calc Pharmacy 80.4 ml/min; Est GFR (African American) 81.7; Est GFR (Non-African American) 70.5; Potassium 3.5 mmol/L (3.5-5.1)
[2019-10-12 03:50] LABS: Albumin Globulin Ratio 0.6 (0.9-2); Bilirubin,Total 5.7 mg/dl (0.2-1); Globulin 5.1 gm/dl (2.5-4.0); Total Protein 8.1 gm/dl (6.4-8.2)
[2019-10-12] MEDS ORDERED: PIPERACILLIN/TAZOBACTAM 3.375 GM in DEXTROSE 5% 100 ML IV SCH (04:00)
[2019-10-12 04:52] LABS: Basophils # (auto) 0.06 K/uL (0-0.2); Eosinophils # (auto) 0.21 K/uL (0-0.5); Eosinophils % (auto) 3.3 %; Hematocrit (blood only) 29.3 % (42-52); Hemoglobin 10.7 g/dL (14.0-18.0); Immature Granulocytes # (auto) 0.02 K/uL (0.00-0.02); Immature Granulocytes % (auto) 0.3 %; Lymphocytes # (auto) 1.27 K/uL (1.2-3.4); Lymphocytes % (auto) 20.1 %; Mean Corpuscular Hemoglobin 36.3 pg (25-34); Mean Corpuscular Hgb Conc 36.5 g/dL (32-36); Mean Corpuscular Volume 99.3 fL (80-100); Mean Platelet Volume 8.8 fL (7.4-10.4); Monocytes # (auto) 0.96 K/uL (0.11-0.59); Monocytes % (auto) 15.2 %; Neutrophils # (auto) 3.79 K/uL (1.4-6.5); Neutrophils % (auto) 60.1 %; Platelet Count 141 K/uL (130-400); RDW Coefficient of Variation 13.8 % (11.5-14.5); RDW Standard Deviation 49.8 fL (36.4-46.3); Red Blood Count 2.95 M/uL (4.7-6.1); White Blood Count 6.31 K/uL (4.8-10.8)
[2019-10-12 05:01] LABS: INR 1.5 (0.9-1.1); Prothrombin Time 15.1 Seconds (9.0-12.0)
[2019-10-12 05:40] LABS: BUN Creatinine Ratio 19.7 (10-20); Calcium 8.9 mg/dl (8.5-10.1); Creatinine Clr Calc Pharmacy 83.3 ml/min; Est GFR (African American) 85.3; Est GFR (Non-African American) 73.6; Magnesium 2.1 mg/dl (1.8-2.4); Phosphorus 4.7 mg/dl (2.5-4.9); Potassium 3.6 mmol/L (3.5-5.1)
[2019-10-12 06:11] VITALS: TEMP 98.6
[2019-10-12 10:03] VITALS: O2SAT 96
[2019-10-12 11:10] VITALS: BP 157/93; PULSE 91
--- NOTE | 2019-10-12 17:08 | Discharge Summary ---
Date of Service October 12, 2019 Admission HPI Per Admitting Provider The patient is a 54-year-old male with past medical history including alcohol abuse, and alcoholic liver cirrhosis, who presents to the emergency department with complaint of not having eaten for 3 days, nausea vomiting, altered mental status and abdominal pain after eating lemon chicken soup at a restaurant 3 days ago. Family reports that this is his third episode of abdominal pain, nausea vomiting after food intake. His significant other reports that he has already begun to have a liver transplant work-up with [facility], and is interested in returning to the [facility] in [place] as soon as he is well enough to travel. Principal Diagnosis SBO and liver cirrhosis Discharge Exam Constitutional + ill appearing and + lethargic Eyes EOM intact bilaterally; no conjunctival abnormality ENMT external ear and nose normal, oropharynx normal Neck trachea midline, no thyromegaly normal visual inspection Respiratory normal respiratory effort, lungs clear to auscultation no respiratory distress Cardiovascular RRR, no murmur, no edema Gastrointestinal (Abdomen) Inspection/Auscultation: abdomen normal to inspection; abdomen not distended Musculoskeletal no cyanosis or clubbing, extremities motor strength 5/5 Skin no rashes, warm and dry Neurologic moves all extremities; + not awake Psychiatric Orientation: cooperative; + not alert and + not oriented to person Discharge Data Allergies Allergy/AdvReac Type Severity Reaction Status Date / Time No Known Allergies Allergy Verified 10/11/19 16:36 Consultations 10/11/19 22:51 ED Decision to Admit Stat 10/12/19 01:49 Consult Case Management - Discharge Planning Routine Consult Director Informatics Routine 10/12/19 08:22 Burn CD for patient Routine Ordered Studies 10/11/19 14:43 CT abd pelvis wo con Stat CT head/brain wo con Stat 10/11/19 17:32 CT abd pelvis IV con only Stat Hospital Course (1) Admitted to intensive care unit: Patient is admitted to intensive care unit with consults to practice assistant and general surgery. (2) Hepatic encephalopathy: Hepatic encephalopathy/alcoholic cirrhosis/portal hypertension/ascite s/splenomegaly- Ammonia level 112 upon admission. Received lactulose in ED, with improvement in ammonia level to 64.4, however, the patient continues to be obtunded. Continue lactulose, may require NG tube. Follow serial CBC with differential, chemistry profile, magnesium and ammonia levels. Holding patient's furosemide, spironolactone and potassium. Plan is to stabilize the patient here, and then will be transferred to a tertiary care center. (3) SBO (small bowel obstruction): Small bowel obstruction/incarcerated umbilical hernia- NPO Partially reduced in the ED by general surgery Dr. Madison. Place on Zosyn 4.5 g IV every 8 hours. Famotidine 20 mg IV every 12 hours. Zofran 4 mg IV every 6 hours PRN (4) Incarcerated hernia: See above (5) Coagulopathy: INR 1.5 upon admission. Received vitamin K 10 mg IV in the ED. Repeat INR in the a.m. (6) Jaundice: See above. Total bilirubin 5.6 upon admission (7) Anemia: Hemoglobin 10.9 upon admission. Indices are hyperchromic and macrocytic. More suggestive of alcohol use and or pain B12 and folate acid deficiencies. (8) Liver cirrhosis, alcoholic: Reported last alcohol was in June 2019 (9) Splenomegaly: Monitor. Normal platelets. (10) Portal hypertension: Furosemide and Spironolactone will be resumed when more alert. Would add on propranolol at that time as well. (11) Ascites due to alcoholic cirrhosis: Patient would likely benefit from IV albumin. Does not look to need a paracentesis at this time. (12) Umbilical hernia: As above. Total Time Total Time Spent Total Time Spent (In Minutes): 45 Discharge Plan Discharge Items Patient Disposition: Transfer Acute Care Hospital Reason For Visit: HEPATIC ENCEPHALOPATHY,SBO,INCARCERATED HERNIA Discharge Diagnosis: Hepatic encephalopathy & likely partial SBO at the site of an umbilical hernia Activity: Resume your previous activity Non-emergency contact: Primary Care Provider and [employer] Call non-emergency contact if: your symptoms worsen Follow-up/Referrals: PCP,NO [Primary Care Provider] - Diet: Low Sodium (2gm) Addtl Attending Provider Instructions: Hepatic encephalopathy & likely partial SBO at the site of an umbilical hernia 2-3 days of nausea, vomiting, and no BM. Increasing confusion. NH3 115. CT a/p showed SBO at the site of the umbilical hernia; however, air/fluid past the transition point. In the ED, received lactulose PO and GA. Had a BM the morning of 12/15. Mental status was clearing with GCS of 12 by time of transfer. MELD 19. Getting a transplant work-up in [place]. Started on Zosyn here. Given IV vitamin K. Pending Studies at Discharge: No Stand-Alone Forms: My [facility] Skilled Items Patient informed of condition?: Yes DNR: No Discharge Level of Care: Other Communicable Disease: No Discharge Prognosis: Stable Lines: Peripheral IV Urinary Catheter: Yes Medications and DC Order Prescriptions: Continued spironolactone 100 mg tablet 100 mg PO DAILY RF: 0 furosemide 20 mg tablet 20 mg PO BID RF: 0 ergocalciferol (vitamin D2) 50,000 unit capsule 50,000 unit PO TH RF: 0 potassium chloride 20 mEq tablet extended release 20 meq PO DAILY RF: 0 Discharge Orders: Discharge Order (Routine); Ordered 10/12/19 Ordered By: Titus Hernandez Admission Data Admit Date/Time: 10/12/19 01:00 Attending Provider: Titus Hernandez Admit Provider: James Castillo Primary Care Provider: PCP,NO Other Providers: Aleksandr Delarosa ; Titus Hernandez Other Interventions: Discharge Summary Assessment (RN) Last Done: 10/12/19 11:07 DC Date/Time DO NOT enter until pt leaves facility: 10/12/19 11:11
== END 2019-10-12 11:11 | disposition short-term general hospital (02) | DRG 394 ==
LOC: ED 14:01 → 1E 10-12 01:00 → SUATTDRO 10-12 01:00 → 1E 10-12 01:28
DX: R00.0 Tachycardia, unspecified; D68.9 Coagulation defect, unspecified; R16.1 Splenomegaly, not elsewhere classified; D50.9 Iron deficiency anemia, unspecified; K76.6 Portal hypertension; F10.11 Alcohol abuse, in remission; Z79.899 Other long term (current) drug therapy; K42.0 Umbilical hernia with obstruction, without gangrene; Z76.82 Awaiting organ transplant status; K70.31 Alcoholic cirrhosis of liver with ascites; E86.0 Dehydration; K70.40 Alcoholic hepatic failure without coma